=== PATIENT | male | born 1960 | race African-American/Black ===

== ENCOUNTER 2017-05-23 22:55 | Inpatient (IN) | payer SELFPAY ==
[~2017-05-23] VITALS: Ht 165.1 cm; Wt 57.8 kg
[2017-05-23] MEDS: MANNITOL 20% 250 ML IV ONE (00:45)
[~2017-05-23 22:55] MED LIST: NORMAL SALINE 0.9% 10 ML SYR ONE; SUCCINYLCHOLINE CHLORIDE 200MG/10ML VIAL IV ONE
[2017-05-23] MEDS ORDERED: ONDANSETRON HCL 4MG/2ML VIAL IV STA (22:58)
[2017-05-23] MEDS ORDERED: SODIUM CHLORIDE 0.9% 1,000 ML IV ONE (22:58)
[2017-05-23] MEDS ORDERED: LEVETIRACETAM 500MG PREMIX 100 ML IV ONE (23:00)
[2017-05-23] MEDS ORDERED: MIDAZOLAM HCL 2 MG/2 ML VIAL ONE (23:21)
[2017-05-23] MEDS ORDERED: DEXAMETHASONE 10 MG/ML VIAL IV ONE (23:30)
[2017-05-23] MEDS ORDERED: SUCCINYLCHOLINE CHLORIDE 200MG/10ML VIAL IV ONE (23:30)
[2017-05-23] MEDS ORDERED: NICARDIPINE 100 MG in SODIUM CHLORIDE 0.9% 60 ML IV ONE (23:30)
[2017-05-23] MEDS ORDERED: PROPOFOL 10MG/ML 100ML 100 ML IV ONE (23:30)
[2017-05-24] VITALS (74 sets, daily range): BP systolic 104–153; BP diastolic 60–103
[2017-05-24] MEDS ORDERED: MIDAZOLAM HCL 2 MG/2 ML VIAL IV ONE
[2017-05-24 00:04] LABS: BASOPHILS % 0.7 % (0.0-2.0); EOSINOPHILS % 2.5 % (0.0-5.0); HEMATOCRIT. 45.1 % (42.0-52.0); HEMOGLOBIN. 15.8 g/dL (14.0-18.0); LYMPHOCYTES % 25.4 % (20.0-50.0); MEAN CORPUSCULAR HEMOGLOBIN 31.8 pg (28.0-32.0); MEAN CORPUSCULAR VOLUME 90.7 fL (80.0-94.0); MEAN PLATELET VOLUME 8.3 fl (7.4-10.4); MONOCYTES % 3.8 % (2.0-8.0); NEUTROPHILS % 67.6 % (40.0-76.0); PLATELET 236 x1000/uL (130-400); RED BLOOD CELL COUNT 4.98 mill/uL (4.7-6.1); RED CELL DISTRIBUTION WIDTH 13.2 % (11.6-14.6)
[2017-05-24 00:08] LABS: PROTHROMBIN TIME 10.6 sec (9.4-11.6)
[2017-05-24 00:12] LABS: CHLORIDE 105 mEq/L (98-107)
[2017-05-24] MEDS ORDERED: MANNITOL 12.5G (25%) VIAL 50ML IV ONE (00:15)
[2017-05-24] MEDS ORDERED: NICARDIPINE 100 MG in SODIUM CHLORIDE 0.9% 60 ML IV PRN (00:15)
[2017-05-24 00:16] LABS: ETHANOL BLOOD < 10 mg/dL
[2017-05-24 00:18] LABS: AMMONIA 32 uMol/L (<32)
[2017-05-24 00:41] LABS: BG BASE EXCESS -0.9 mmol/L (-2.0-2.0); BG CARBOXYHEMOGLOBIN 2.1 % (0.5-1.5); BG DEOXYHEMOGLOBIN 3.9 % (0.0-5.0); BG FRACTION INSPIRED OXYGEN 50; BG HCO3 ACT 24.2 mmol/L (22.0-26.0); BG METHEMOGLOBIN 0.3 % (0.0-1.5); BG OXYHEMOGLOBIN 93.7 % (94.0-97.0); BG PCO2 41.9 mmHg (35.0-45.0); BG PO2 80.4 mmHg (75.0-100.0); BG SAMPLE SITE RIGHT BRACHIAL; BG TIDAL VOLUME(mL) 500 mL; BG TOTAL HEMOGLOBIN 15.3 g/dL (12.0-18.0); BG VENT MODE VENT - A/C; BG VENT RATE 16 set
[2017-05-24 01:15] LABS: CLARITY URINE CLEAR (CLEAR); COLOR URINE YELLOW (YELLOW); KETONES URINE NEGATIVE (NEGATIVE); LEUKOCYTE ESTERASE URINE NEGATIVE (NEGATIVE); NITRITE URINE NEGATIVE (NEGATIVE); OCCULT BLOOD URINE 1+ (NEGATIVE); PH URINE 7.5 (4.5-8.0); PROTEIN URINE 3+ (NEGATIVE); SPECIFIC GRAVITY URINE 1.011 (1.005-1.030); UROBILINOGEN URINE 0.2 E.U./dL (0.2-1.0)
[2017-05-24 01:34] LABS: *BARBITURATES SCREEN URINE NEGATIVE (NEGATIVE); *BENZODIAZEPINES SCREEN URINE PRESUMTIVE POSITIVE (NEGATIVE); *COCAINE SCREEN URINE NEGATIVE (NEGATIVE); METHADONE URINE SCREEN NEGATIVE (NEGATIVE); OPIATES URINE SCREEN NEGATIVE (NEGATIVE); PHENCYCLIDINE URINE SCREEN NEGATIVE (NEGATIVE)
[2017-05-24 01:35] LABS: *AMPHETAMINES SCREEN URINE NEGATIVE (NEGATIVE); CANNABINOID URINE SCREEN NEGATIVE (NEGATIVE)
[2017-05-24] MEDS ORDERED: KCL 20MEQ/100ML PREMIX 100 ML IV ONE (01:45)
[2017-05-24] MEDS ORDERED: PROPOFOL 10MG/ML 100ML 100 ML IV PRN ×3 (03:30→12:00)
[2017-05-24] MEDS ORDERED: MANNITOL 20% 100 ML IV SCH (04:00)
[2017-05-24] MEDS ORDERED: MANNITOL 20% 250 ML IV SCH (04:00)
[2017-05-24] MEDS ORDERED: MANNITOL 20% (20GM/100ML) BAG 500ML PREMIX IV SCH (05:00)
[2017-05-24] MEDS: MANNITOL 20% 100 ML IV SCH ×4 (05:03→16:52)
[2017-05-24] MEDS: DEXT 5%/LACTATED RINGERS 1,000 ML IV SCH (05:27)
[2017-05-24] MEDS: DEXAMETHASONE 10 MG/ML VIAL IV SCH ×4 (06:00→23:47)
[2017-05-24] MEDS: PHENYTOIN SODIUM 100MG/2ML VIAL IV SCH ×3 (06:14→21:26)
[2017-05-24] MEDS ORDERED: MORPHINE SULFATE 4 MG/ML CPJ (NOT FOR IM USE) IV PRN (07:00)
[2017-05-24] MEDS ORDERED: MORPHINE SULFATE 4 MG/ML CPJ (NOT FOR IM USE) IV NR (07:00)
[2017-05-24] MEDS: NICARDIPINE 100 MG in SODIUM CHLORIDE 0.9% 60 ML IV PRN (07:38)
[2017-05-24 07:56] LABS: BG BASE EXCESS -3.2 mmol/L (-2.0-2.0); BG CARBOXYHEMOGLOBIN 0.5 % (0.5-1.5); BG DEOXYHEMOGLOBIN 1.1 % (0.0-5.0); BG FRACTION INSPIRED OXYGEN 50; BG HCO3 ACT 20.6 mmol/L (22.0-26.0); BG METHEMOGLOBIN 0.2 % (0.0-1.5); BG OXYGEN SATURATION 98.9 % (92.0-98.5); BG OXYHEMOGLOBIN 98.2 % (94.0-97.0); BG PCO2 33.6 mmHg (35.0-45.0); BG PH 7.405 (7.350-7.450); BG PO2 156.6 mmHg (75.0-100.0); BG SAMPLE SITE RIGHT RADIAL; BG TIDAL VOLUME(mL) 500 mL; BG TOTAL HEMOGLOBIN 14.5 g/dL (12.0-18.0); BG VENT MODE VENT - A/C; BG VENT RATE 16 set
[2017-05-24] MEDS: MORPHINE SULFATE 4 MG/ML CPJ (NOT FOR IM USE) IV PRN ×2 (08:00→21:26)
[2017-05-24 08:28] LABS: HEMATOCRIT. 39.3 % (42.0-52.0); HEMOGLOBIN. 13.9 g/dL (14.0-18.0); MEAN CORPUSCULAR HEMOGLOBIN 31.9 pg (28.0-32.0); MEAN CORPUSCULAR VOLUME 90.4 fL (80.0-94.0); MEAN PLATELET VOLUME 8.1 fl (7.4-10.4); PLATELET 214 x1000/uL (130-400); RED BLOOD CELL COUNT 4.35 mill/uL (4.7-6.1)
[2017-05-24 08:49] LABS: PLATELET ESTIMATE NORMAL
[2017-05-24] MEDS ORDERED: DEXTROSE 50% WATER 50ML SYRINGE IV PRN (09:45)
[2017-05-24] MEDS ORDERED: PANTOPRAZOLE SODIUM 40 MG/VIAL IV ONE (09:50)
[2017-05-24] MEDS ORDERED: IPRATROPIUM/ALBUTEROL 0.5-3(2.5)MG/3ML NEB HHN PRN (10:30)
[2017-05-24] MEDS: BLOOD SUGAR DIAGNOSTIC STRIP TEST SCH ×3 (11:38→23:39)
[2017-05-24] MEDS: IPRATROPIUM/ALBUTEROL 0.5-3(2.5)MG/3ML NEB HHN SCH ×3 (11:40→20:49)
[2017-05-24] MEDS ORDERED: POTASSIUM CHLORIDE INJ 40 MEQ in SODIUM CHLORIDE 0.9% 250 ML IV NR (13:00)
[2017-05-24] MEDS ORDERED: POTASSIUM CHLORIDE INJ 40 MEQ in DEXT 5% WATER 250 ML IV NR (13:00)
[2017-05-24] MEDS: POTASSIUM CHLORIDE INJ 20 MEQ in SODIUM CHLORIDE 0.9% 100 ML IV SCH ×2 (14:00→16:00)
[2017-05-25] VITALS (79 sets, daily range): BP systolic 105–216; BP diastolic 46–139
[2017-05-25] MEDS: IPRATROPIUM/ALBUTEROL 0.5-3(2.5)MG/3ML NEB HHN SCH ×5 (00:16→20:48)
[2017-05-25] MEDS: MORPHINE SULFATE 4 MG/ML CPJ (NOT FOR IM USE) IV PRN ×5 (00:27→22:03)
[2017-05-25] MEDS: PHENYTOIN SODIUM 100MG/2ML VIAL IV SCH ×3 (05:18→22:02)
[2017-05-25] MEDS: BLOOD SUGAR DIAGNOSTIC STRIP TEST SCH ×3 (05:18→18:55)
[2017-05-25] MEDS: DEXAMETHASONE 10 MG/ML VIAL IV SCH ×3 (05:18→19:13)
[2017-05-25 05:31] LABS: HEMATOCRIT. 41.7 % (42.0-52.0); HEMOGLOBIN. 14.6 g/dL (14.0-18.0); MEAN CORPUSCULAR HEMOGLOBIN 31.7 pg (28.0-32.0); MEAN CORPUSCULAR VOLUME 90.7 fL (80.0-94.0); MEAN PLATELET VOLUME 8.9 fl (7.4-10.4); PLATELET 240 x1000/uL (130-400); RED CELL DISTRIBUTION WIDTH 13.7 % (11.6-14.6)
[2017-05-25 06:17] LABS: PHOSPHORUS 2.9 mg/dL (2.5-4.9)
[2017-05-25 07:23] LABS: BG BASE EXCESS -2.4 mmol/L (-2.0-2.0); BG CARBOXYHEMOGLOBIN 0.3 % (0.5-1.5); BG DEOXYHEMOGLOBIN 1.2 % (0.0-5.0); BG HCO3 ACT 21.6 mmol/L (22.0-26.0); BG METHEMOGLOBIN 0.2 % (0.0-1.5); BG OXYGEN SATURATION 98.8 % (92.0-98.5); BG OXYHEMOGLOBIN 98.3 % (94.0-97.0); BG PCO2 35.3 mmHg (35.0-45.0); BG PH 7.405 (7.350-7.450); BG PO2 149.2 mmHg (75.0-100.0); BG SAMPLE SITE RIGHT RADIAL; BG TIDAL VOLUME(mL) 500 mL; BG TOTAL HEMOGLOBIN 14.2 g/dL (12.0-18.0); BG VENT MODE VENT - A/C; BG VENT RATE 16 set
[2017-05-25] MEDS ORDERED: KCL 20MEQ/100ML PREMIX 100 ML IV SCH (08:30)
[2017-05-25] MEDS ORDERED: NON FORMULARY PATIENT HOME MED EA XX SCH (09:45)
[2017-05-25] MEDS: PANTOPRAZOLE SODIUM 40 MG/VIAL IV SCH (10:08)
[2017-05-25] MEDS: INSULIN GLARGINE UD 100 UNITS/ML SYR SUBCUT SCH (10:16)
[2017-05-25] MEDS ORDERED: POTASSIUM CHLORIDE INJ 20 MEQ in SODIUM CHLORIDE 0.9% 100 ML IV SCH (11:00)
[2017-05-25] MEDS: DEXT 5%/LACTATED RINGERS 1,000 ML IV SCH (13:00)
[2017-05-25] MEDS: NICARDIPINE 100 MG in SODIUM CHLORIDE 0.9% 60 ML IV PRN (16:48)
[2017-05-25 22:35] LABS: PLATELET ESTIMATE NORMAL
[2017-05-26] VITALS (49 sets, daily range): BP systolic 14–185; BP diastolic 67–124
[2017-05-26] MEDS: IPRATROPIUM/ALBUTEROL 0.5-3(2.5)MG/3ML NEB HHN SCH ×6 (00:27→23:51)
[2017-05-26] MEDS: BLOOD SUGAR DIAGNOSTIC STRIP TEST SCH ×5 (00:33→23:12)
[2017-05-26] MEDS: MORPHINE SULFATE 4 MG/ML CPJ (NOT FOR IM USE) IV PRN ×6 (00:35→15:10)
[2017-05-26] MEDS: DEXAMETHASONE 10 MG/ML VIAL IV SCH ×2 (00:35→05:45)
[2017-05-26 05:39] LABS: HEMATOCRIT. 42.8 % (42.0-52.0); HEMOGLOBIN. 14.6 g/dL (14.0-18.0); MEAN CORPUSCULAR HEMOGLOBIN 31.8 pg (28.0-32.0); MEAN PLATELET VOLUME 8.7 fl (7.4-10.4); PLATELET 254 x1000/uL (130-400); RED CELL DISTRIBUTION WIDTH 13.9 % (11.6-14.6)
[2017-05-26] MEDS: PHENYTOIN SODIUM 100MG/2ML VIAL IV SCH ×3 (05:44→21:27)
[2017-05-26 06:01] LABS: PHOSPHORUS 2.5 mg/dL (2.5-4.9)
[2017-05-26] MEDS: DEXT 5%/LACTATED RINGERS 1,000 ML IV SCH (08:00)
[2017-05-26] MEDS: PANTOPRAZOLE SODIUM 40 MG/VIAL IV SCH (08:10)
[2017-05-26 08:46] LABS: BG BASE EXCESS -1.6 mmol/L (-2.0-2.0); BG CARBOXYHEMOGLOBIN 0.1 % (0.5-1.5); BG DEOXYHEMOGLOBIN 1.9 % (0.0-5.0); BG FRACTION INSPIRED OXYGEN 50; BG HCO3 ACT 23.1 mmol/L (22.0-26.0); BG METHEMOGLOBIN 0.1 % (0.0-1.5); BG OXYGEN SATURATION 98.1 % (92.0-98.5); BG OXYHEMOGLOBIN 97.9 % (94.0-97.0); BG PCO2 39.1 mmHg (35.0-45.0); BG SAMPLE SITE LEFT RADIAL; BG TIDAL VOLUME(mL) 500 mL; BG TOTAL HEMOGLOBIN 14.3 g/dL (12.0-18.0); BG VENT MODE VENT - A/C; BG VENT RATE 16 set
[2017-05-26 12:23] LABS: PLATELET ESTIMATE NORMAL
[2017-05-26] MEDS: DEXAMETHASONE 4MG/ML 1ML VIAL IV SCH ×3 (12:29→23:12)
[2017-05-26] MEDS: INSULIN GLARGINE UD 100 UNITS/ML SYR SUBCUT SCH (12:30)
[2017-05-26] MEDS ORDERED: PHENYTOIN SODIUM 500 MG in SODIUM CHLORIDE 0.9% 50 ML IV NR (13:00)
[2017-05-26] MEDS ORDERED: LORAZEPAM 2MG/ML CPJ IV NR (13:45)
[2017-05-26] MEDS ORDERED: LORAZEPAM 2MG/ML CPJ ONE (13:55)
[2017-05-26] MEDS ORDERED: LIDOCAINE HCL 2% JELLY 5ML MM NR (14:15)
[2017-05-26] MEDS ORDERED: DEXTROSE 50% WATER 50ML SYRINGE IV PRN (14:15)
[2017-05-26] MEDS: PIPERACILLIN/TAZ 3.375G PREMIX 50 ML IV SCH ×2 (16:28→22:42)
[2017-05-26] MEDS: AMLODIPINE 5MG TABLET NG SCH ×2 (17:26→21:27)
[2017-05-26] MEDS: INSULIN LISPRO 100 UNITS/ML SUBCUT SCH ×2 (18:00→23:12)
[2017-05-26 18:55] LABS: BG CARBOXYHEMOGLOBIN 0.5 % (0.5-1.5); BG DEOXYHEMOGLOBIN 2.7 % (0.0-5.0); BG FRACTION INSPIRED OXYGEN 50; BG HCO3 ACT 24.6 mmol/L (22.0-26.0); BG METHEMOGLOBIN 0.4 % (0.0-1.5); BG OXYGEN SATURATION 97.3 % (92.0-98.5); BG OXYHEMOGLOBIN 96.4 % (94.0-97.0); BG PCO2 40.2 mmHg (35.0-45.0); BG PH 7.405 (7.350-7.450); BG PO2 98.5 mmHg (75.0-100.0); BG PRESSURE SUPPORT 15; BG SAMPLE SITE LEFT RADIAL; BG TIDAL VOLUME(mL) 500 mL; BG TOTAL HEMOGLOBIN 14.3 g/dL (12.0-18.0); BG VENT MODE VENT - SIMV; BG VENT RATE 12 set
[2017-05-26] MEDS: LORAZEPAM 2MG/ML CPJ IV PRN (20:22)
[2017-05-26] MEDS: DIPHENHYDRAMINE 12.5MG/5ML UDC NG PRN (21:46)
[2017-05-27] VITALS (94 sets, daily range): BP systolic 109–187; BP diastolic 60–127
[2017-05-27] MEDS: LORAZEPAM 2MG/ML CPJ IV PRN ×3 (03:41→20:20)
[2017-05-27] MEDS: IPRATROPIUM/ALBUTEROL 0.5-3(2.5)MG/3ML NEB HHN SCH ×5 (04:56→20:29)
[2017-05-27] MEDS: BLOOD SUGAR DIAGNOSTIC STRIP TEST SCH ×3 (05:16→16:59)
[2017-05-27] MEDS: DEXAMETHASONE 4MG/ML 1ML VIAL IV SCH ×3 (05:20→17:00)
[2017-05-27] MEDS: PHENYTOIN SODIUM 100MG/2ML VIAL IV SCH ×3 (05:20→22:09)
[2017-05-27] MEDS: INSULIN LISPRO 100 UNITS/ML SUBCUT SCH ×3 (05:21→17:00)
[2017-05-27 05:24] LABS: HEMATOCRIT. 40.7 % (42.0-52.0); HEMOGLOBIN. 14.2 g/dL (14.0-18.0); MEAN PLATELET VOLUME 9.2 fl (7.4-10.4); PLATELET 195 x1000/uL (130-400); RED BLOOD CELL COUNT 4.42 mill/uL (4.7-6.1); RED CELL DISTRIBUTION WIDTH 13.5 % (11.6-14.6)
[2017-05-27 05:55] LABS: PHOSPHORUS 2.3 mg/dL (2.5-4.9)
[2017-05-27] MEDS: PIPERACILLIN/TAZ 3.375G PREMIX 50 ML IV SCH ×3 (06:21→22:09)
[2017-05-27] MEDS: NICARDIPINE 100 MG in SODIUM CHLORIDE 0.9% 60 ML IV PRN (06:21)
[2017-05-27] MEDS: DIPHENHYDRAMINE 12.5MG/5ML UDC NG PRN ×2 (08:22→16:19)
[2017-05-27] MEDS: AMLODIPINE 5MG TABLET NG SCH ×2 (08:22→22:09)
[2017-05-27] MEDS: PANTOPRAZOLE SODIUM 40 MG/VIAL IV SCH (08:22)
[2017-05-27 08:23] LABS: BG BASE EXCESS 0.3 mmol/L (-2.0-2.0); BG CARBOXYHEMOGLOBIN 0.7 % (0.5-1.5); BG DEOXYHEMOGLOBIN 1.6 % (0.0-5.0); BG FRACTION INSPIRED OXYGEN 50; BG HCO3 ACT 23.9 mmol/L (22.0-26.0); BG METHEMOGLOBIN 0.3 % (0.0-1.5); BG OXYGEN SATURATION 98.4 % (92.0-98.5); BG OXYHEMOGLOBIN 97.4 % (94.0-97.0); BG PCO2 35.6 mmHg (35.0-45.0); BG PH 7.445 (7.350-7.450); BG PO2 114.5 mmHg (75.0-100.0); BG PRESSURE SUPPORT 15; BG SAMPLE SITE LEFT RADIAL; BG TIDAL VOLUME(mL) 500 mL; BG VENT MODE VENT - SIMV; BG VENT RATE 12 set
[2017-05-27] MEDS: INSULIN GLARGINE UD 100 UNITS/ML SYR SUBCUT SCH (11:00)
[2017-05-27] MEDS ORDERED: VANCOMYCIN 1500MG in DEXTROSE 5% WATER 250ML IV NR (11:00)
[2017-05-27 14:33] LABS: PLATELET ESTIMATE NORMAL
[2017-05-27] MEDS: ACETAMINOPHEN 650MG/20.3ML UDC NG PRN (16:19)
[2017-05-27] MEDS: HYDRALAZINE 20MG/ML VIAL IV PRN (16:29)
[2017-05-27 17:12] LABS: BG BASE EXCESS 1.5 mmol/L (-2.0-2.0); BG CARBOXYHEMOGLOBIN 0.6 % (0.5-1.5); BG DEOXYHEMOGLOBIN 1.4 % (0.0-5.0); BG FRACTION INSPIRED OXYGEN 50; BG HCO3 ACT 24.9 mmol/L (22.0-26.0); BG METHEMOGLOBIN 0.3 % (0.0-1.5); BG OXYGEN SATURATION 98.6 % (92.0-98.5); BG OXYHEMOGLOBIN 97.7 % (94.0-97.0); BG PCO2 35.7 mmHg (35.0-45.0); BG PH 7.462 (7.350-7.450); BG PO2 125.5 mmHg (75.0-100.0); BG PRESSURE SUPPORT 15; BG SAMPLE SITE LEFT BRACHIAL; BG TIDAL VOLUME(mL) 500 mL; BG TOTAL HEMOGLOBIN 14.8 g/dL (12.0-18.0); BG VENT MODE VENT - SIMV; BG VENT RATE 8 set
[2017-05-27] MEDS: MORPHINE SULFATE 4 MG/ML CPJ (NOT FOR IM USE) IV PRN (17:21)
[2017-05-27] MEDS: VANCOMYCIN 750 MG PREMIX 150 ML IV SCH (22:09)
[2017-05-28] VITALS (93 sets, daily range): BP systolic 114–185; BP diastolic 62–100
[2017-05-28] MEDS: BLOOD SUGAR DIAGNOSTIC STRIP TEST SCH ×4 (00:28→17:24)
[2017-05-28] MEDS: DEXAMETHASONE 4MG/ML 1ML VIAL IV SCH ×4 (00:36→17:26)
[2017-05-28] MEDS: DIPHENHYDRAMINE 12.5MG/5ML UDC NG PRN ×3 (00:36→17:26)
[2017-05-28] MEDS: LORAZEPAM 2MG/ML CPJ IV PRN ×3 (00:36→22:59)
[2017-05-28] MEDS: INSULIN LISPRO 100 UNITS/ML SUBCUT SCH ×4 (00:37→17:40)
[2017-05-28] MEDS: NICARDIPINE 100 MG in SODIUM CHLORIDE 0.9% 60 ML IV PRN ×3 (00:38→21:00)
[2017-05-28] MEDS: IPRATROPIUM/ALBUTEROL 0.5-3(2.5)MG/3ML NEB HHN SCH ×7 (04:15→23:42)
[2017-05-28] MEDS: PHENYTOIN SODIUM 100MG/2ML VIAL IV SCH ×3 (06:28→21:17)
[2017-05-28] MEDS: PIPERACILLIN/TAZ 3.375G PREMIX 50 ML IV SCH (06:33)
[2017-05-28] MEDS: DEXT 5%/LACTATED RINGERS 1,000 ML IV SCH (07:43)
[2017-05-28] MEDS: ACETAMINOPHEN 650MG/20.3ML UDC NG PRN ×3 (08:23→23:26)
[2017-05-28] MEDS: PANTOPRAZOLE SODIUM 40 MG/VIAL IV SCH (08:23)
[2017-05-28] MEDS: AMLODIPINE 5MG TABLET NG SCH ×2 (08:24→21:17)
[2017-05-28 08:42] LABS: BG BASE EXCESS 2.6 mmol/L (-2.0-2.0); BG CARBOXYHEMOGLOBIN 0.3 % (0.5-1.5); BG DEOXYHEMOGLOBIN 3.9 % (0.0-5.0); BG FRACTION INSPIRED OXYGEN 50; BG HCO3 ACT 25.2 mmol/L (22.0-26.0); BG METHEMOGLOBIN 0.1 % (0.0-1.5); BG OXYGEN SATURATION 96.1 % (92.0-98.5); BG OXYHEMOGLOBIN 95.7 % (94.0-97.0); BG PCO2 33.1 mmHg (35.0-45.0); BG PO2 76.1 mmHg (75.0-100.0); BG PRESSURE SUPPORT 15; BG SAMPLE SITE LEFT RADIAL; BG TIDAL VOLUME(mL) 500 mL; BG VENT MODE VENT - SIMV; BG VENT RATE 8 set
[2017-05-28] MEDS: INSULIN GLARGINE UD 100 UNITS/ML SYR SUBCUT SCH (10:28)
[2017-05-28] MEDS: VANCOMYCIN 750 MG PREMIX 150 ML IV SCH (11:39)
[2017-05-28] MEDS: MORPHINE SULFATE 4 MG/ML CPJ (NOT FOR IM USE) IV PRN (13:18)
[2017-05-28 13:28] LABS: HEMOGLOBIN. 13.6 g/dL (14.0-18.0); MEAN CORPUSCULAR VOLUME 93.9 fL (80.0-94.0); MEAN PLATELET VOLUME 9.4 fl (7.4-10.4); PLATELET 195 x1000/uL (130-400); RED BLOOD CELL COUNT 4.26 mill/uL (4.7-6.1); RED CELL DISTRIBUTION WIDTH 13.9 % (11.6-14.6)
[2017-05-28] MEDS: CEFAZOLIN 1000MG PREMIX 50 ML IV SCH ×2 (14:42→21:17)
[2017-05-29] VITALS (103 sets, daily range): BP systolic 116–172; BP diastolic 66–101
[2017-05-29 00:10] LABS: PLATELET ESTIMATE NORMAL
[2017-05-29] MEDS: MORPHINE SULFATE 4 MG/ML CPJ (NOT FOR IM USE) IV PRN (00:14)
[2017-05-29] MEDS: BLOOD SUGAR DIAGNOSTIC STRIP TEST SCH ×5 (00:38→23:43)
[2017-05-29] MEDS: INSULIN LISPRO 100 UNITS/ML SUBCUT SCH ×5 (00:41→23:47)
[2017-05-29] MEDS: DEXAMETHASONE 4MG/ML 1ML VIAL IV SCH ×5 (00:55→23:37)
[2017-05-29] MEDS: HALOPERIDOL LACTATE 5MG/ML VIAL IM PRN ×3 (02:51→19:03)
[2017-05-29] MEDS: IPRATROPIUM/ALBUTEROL 0.5-3(2.5)MG/3ML NEB HHN SCH ×5 (03:35→20:03)
[2017-05-29] MEDS: PHENYTOIN SODIUM 100MG/2ML VIAL IV SCH ×3 (05:03→22:57)
[2017-05-29] MEDS: CEFAZOLIN 1000MG PREMIX 50 ML IV SCH ×3 (05:06→21:35)
[2017-05-29] MEDS: NICARDIPINE 100 MG in SODIUM CHLORIDE 0.9% 60 ML IV PRN ×3 (05:07→18:24)
[2017-05-29 08:03] LABS: BG BASE EXCESS 3.1 mmol/L (-2.0-2.0); BG CARBOXYHEMOGLOBIN 0.1 % (0.5-1.5); BG DEOXYHEMOGLOBIN 9.6 % (0.0-5.0); BG HCO3 ACT 27.9 mmol/L (22.0-26.0); BG METHEMOGLOBIN 0.3 % (0.0-1.5); BG OXYGEN SATURATION 90.4 % (92.0-98.5); BG PCO2 43.1 mmHg (35.0-45.0); BG PH 7.429 (7.350-7.450); BG PO2 55.6 mmHg (75.0-100.0); BG SAMPLE SITE RIGHT RADIAL; BG TIDAL VOLUME(mL) 500 mL; BG TOTAL HEMOGLOBIN 14.1 g/dL (12.0-18.0); BG VENT MODE VENT - SIMV; BG VENT RATE 8 set
[2017-05-29] MEDS: PANTOPRAZOLE SODIUM 40 MG/VIAL IV SCH (08:45)
[2017-05-29] MEDS: AMLODIPINE 5MG TABLET NG SCH ×2 (08:45→20:36)
[2017-05-29] MEDS: INSULIN GLARGINE UD 100 UNITS/ML SYR SUBCUT SCH (10:16)
[2017-05-29 10:34] LABS: HEMOGLOBIN. 13.9 g/dL (14.0-18.0); MEAN CORPUSCULAR HEMOGLOBIN 31.9 pg (28.0-32.0); MEAN CORPUSCULAR VOLUME 94.2 fL (80.0-94.0); MEAN PLATELET VOLUME 9.5 fl (7.4-10.4); PLATELET 193 x1000/uL (130-400); RED BLOOD CELL COUNT 4.35 mill/uL (4.7-6.1); RED CELL DISTRIBUTION WIDTH 13.8 % (11.6-14.6)
[2017-05-29 12:13] LABS: PLATELET ESTIMATE NORMAL
[2017-05-29] MEDS: DIPHENHYDRAMINE 12.5MG/5ML UDC NG PRN (13:19)
[2017-05-29] MEDS: LORAZEPAM 2MG/ML CPJ IV PRN ×2 (16:05→23:37)
[2017-05-29] MEDS: ACETAMINOPHEN 650MG/20.3ML UDC NG PRN ×2 (18:39→20:36)
[2017-05-29] MEDS: HYDRALAZINE 20MG/ML VIAL IV PRN (22:57)
[2017-05-30] VITALS (102 sets, daily range): BP systolic 107–180; BP diastolic 60–114
[2017-05-30] MEDS: IPRATROPIUM/ALBUTEROL 0.5-3(2.5)MG/3ML NEB HHN SCH ×6 (00:27→20:46)
[2017-05-30] MEDS: NICARDIPINE 100 MG in SODIUM CHLORIDE 0.9% 60 ML IV PRN ×3 (01:28→16:31)
[2017-05-30] MEDS: CEFAZOLIN 1000MG PREMIX 50 ML IV SCH ×3 (05:06→22:19)
[2017-05-30] MEDS: DEXAMETHASONE 4MG/ML 1ML VIAL IV SCH ×3 (05:41→18:04)
[2017-05-30] MEDS: LORAZEPAM 2MG/ML CPJ IV PRN ×3 (05:41→16:31)
[2017-05-30] MEDS: PHENYTOIN SODIUM 100MG/2ML VIAL IV SCH ×3 (05:42→22:17)
[2017-05-30] MEDS: BLOOD SUGAR DIAGNOSTIC STRIP TEST SCH ×3 (06:09→17:05)
[2017-05-30 06:25] LABS: HEMATOCRIT. 43.2 % (42.0-52.0); HEMOGLOBIN. 14.4 g/dL (14.0-18.0); MEAN CORPUSCULAR HEMOGLOBIN 31.4 pg (28.0-32.0); MEAN CORPUSCULAR VOLUME 94.6 fL (80.0-94.0); RED BLOOD CELL COUNT 4.57 mill/uL (4.7-6.1); RED CELL DISTRIBUTION WIDTH 13.9 % (11.6-14.6)
[2017-05-30] MEDS: INSULIN LISPRO 100 UNITS/ML SUBCUT SCH ×3 (06:27→18:05)
[2017-05-30] MEDS: AMLODIPINE 5MG TABLET NG SCH ×2 (08:27→20:22)
[2017-05-30] MEDS: PANTOPRAZOLE SODIUM 40 MG/VIAL IV SCH (08:27)
[2017-05-30 08:47] LABS: BG BASE EXCESS 3.6 mmol/L (-2.0-2.0); BG CARBOXYHEMOGLOBIN 0.9 % (0.5-1.5); BG DEOXYHEMOGLOBIN 2.6 % (0.0-5.0); BG FRACTION INSPIRED OXYGEN 40; BG HCO3 ACT 27.3 mmol/L (22.0-26.0); BG METHEMOGLOBIN 0.3 % (0.0-1.5); BG OXYGEN SATURATION 97.4 % (92.0-98.5); BG OXYHEMOGLOBIN 96.2 % (94.0-97.0); BG PCO2 38.7 mmHg (35.0-45.0); BG PH 7.467 (7.350-7.450); BG PO2 91.3 mmHg (75.0-100.0); BG PRESSURE SUPPORT 10; BG SAMPLE SITE LEFT RADIAL; BG VENT MODE VENT - CPAP
[2017-05-30] MEDS: INSULIN GLARGINE UD 100 UNITS/ML SYR SUBCUT SCH (09:37)
[2017-05-30] MEDS: HYDRALAZINE 20MG/ML VIAL IV PRN ×2 (09:43→18:03)
[2017-05-30] MEDS: HALOPERIDOL LACTATE 5MG/ML VIAL IM PRN ×2 (09:46→18:03)
[2017-05-30] MEDS: ACETAMINOPHEN 650MG/20.3ML UDC NG PRN (09:47)
[2017-05-30 11:49] LABS: PLATELET 167 x1000/uL (130-400)
[2017-05-30 11:53] LABS: NUCLEATED RED BLOOD CELLS 1 /100 WBC
[2017-05-30 11:54] LABS: PLATELET ESTIMATE NORMAL
[2017-05-30] MEDS: CLONIDINE 0.1MG TABLET NG SCH ×2 (12:05→22:17)
[2017-05-30 14:54] LABS: BG BASE EXCESS 3.8 mmol/L (-2.0-2.0); BG CARBOXYHEMOGLOBIN 0.6 % (0.5-1.5); BG DEOXYHEMOGLOBIN 2.2 % (0.0-5.0); BG FRACTION INSPIRED OXYGEN 40; BG HCO3 ACT 28.2 mmol/L (22.0-26.0); BG METHEMOGLOBIN 0.4 % (0.0-1.5); BG OXYGEN SATURATION 97.8 % (92.0-98.5); BG OXYHEMOGLOBIN 96.8 % (94.0-97.0); BG PCO2 41.7 mmHg (35.0-45.0); BG PH 7.448 (7.350-7.450); BG SAMPLE SITE LEFT RADIAL; BG TOTAL HEMOGLOBIN 16.4 g/dL (12.0-18.0); BG VENT MODE T-TUBE
[2017-05-31] VITALS (104 sets, daily range): BP systolic 117–181; BP diastolic 51–168
[2017-05-31] MEDS: BLOOD SUGAR DIAGNOSTIC STRIP TEST SCH ×4 (00:39→17:26)
[2017-05-31] MEDS: INSULIN LISPRO 100 UNITS/ML SUBCUT SCH ×4 (00:43→17:37)
[2017-05-31] MEDS: DEXAMETHASONE 4MG/ML 1ML VIAL IV SCH ×4 (00:43→17:36)
[2017-05-31] MEDS: IPRATROPIUM/ALBUTEROL 0.5-3(2.5)MG/3ML NEB HHN SCH ×5 (01:01→16:47)
[2017-05-31] MEDS: LORAZEPAM 2MG/ML CPJ IV PRN ×3 (03:10→17:36)
[2017-05-31] MEDS: DIPHENHYDRAMINE 12.5MG/5ML UDC NG PRN (04:06)
[2017-05-31] MEDS: HYDRALAZINE 20MG/ML VIAL IV PRN (04:11)
[2017-05-31] MEDS: NICARDIPINE 100 MG in SODIUM CHLORIDE 0.9% 60 ML IV PRN ×2 (05:29→22:04)
[2017-05-31] MEDS: PHENYTOIN SODIUM 100MG/2ML VIAL IV SCH ×3 (05:47→21:48)
[2017-05-31] MEDS: CLONIDINE 0.1MG TABLET NG SCH ×3 (05:48→21:58)
[2017-05-31] MEDS: CEFAZOLIN 1000MG PREMIX 50 ML IV SCH ×3 (05:53→21:55)
[2017-05-31] MEDS: PANTOPRAZOLE SODIUM 40 MG/VIAL IV SCH (08:09)
[2017-05-31] MEDS: ACETAMINOPHEN 650MG/20.3ML UDC NG PRN (08:10)
[2017-05-31] MEDS: HALOPERIDOL LACTATE 5MG/ML VIAL IM PRN (08:10)
[2017-05-31] MEDS: AMLODIPINE 5MG TABLET NG SCH ×2 (08:10→21:22)
[2017-05-31 09:14] LABS: BG BASE EXCESS 1.4 mmol/L (-2.0-2.0); BG CARBOXYHEMOGLOBIN 0.6 % (0.5-1.5); BG DEOXYHEMOGLOBIN 2.8 % (0.0-5.0); BG FRACTION INSPIRED OXYGEN 36; BG HCO3 ACT 24.3 mmol/L (22.0-26.0); BG METHEMOGLOBIN 0.3 % (0.0-1.5); BG OXYGEN SATURATION 97.2 % (92.0-98.5); BG OXYHEMOGLOBIN 96.3 % (94.0-97.0); BG PCO2 33.9 mmHg (35.0-45.0); BG PH 7.474 (7.350-7.450); BG SAMPLE SITE LEFT RADIAL; BG TOTAL HEMOGLOBIN 15.4 g/dL (12.0-18.0); BG VENT MODE NASAL CPAP
[2017-05-31] MEDS: INSULIN GLARGINE UD 100 UNITS/ML SYR SUBCUT SCH (09:16)
[2017-05-31] MEDS: HYDRALAZINE HCL 25MG TABLET PO SCH ×3 (09:55→21:58)
[2017-05-31] MEDS: METOPROLOL TARTRATE 25MG TABLET PO SCH ×2 (09:55→21:21)
[2017-05-31 11:33] LABS: HEMATOCRIT. 43.5 % (42.0-52.0); HEMOGLOBIN. 14.8 g/dL (14.0-18.0); MEAN CORPUSCULAR HEMOGLOBIN 32.3 pg (28.0-32.0); MEAN PLATELET VOLUME 9.4 fl (7.4-10.4); PLATELET 205 x1000/uL (130-400); RED BLOOD CELL COUNT 4.57 mill/uL (4.7-6.1)
[2017-05-31 13:48] LABS: PLATELET ESTIMATE NORMAL
[2017-06-01] VITALS (107 sets, daily range): BP systolic 113–177; BP diastolic 40–117
[2017-06-01] MEDS: IPRATROPIUM/ALBUTEROL 0.5-3(2.5)MG/3ML NEB HHN SCH ×5 (00:28→20:04)
[2017-06-01] MEDS: INSULIN LISPRO 100 UNITS/ML SUBCUT SCH ×4 (01:12→17:38)
[2017-06-01] MEDS: NICARDIPINE 100 MG in SODIUM CHLORIDE 0.9% 60 ML IV PRN ×2 (05:01→13:25)
[2017-06-01] MEDS: CEFAZOLIN 1000MG PREMIX 50 ML IV SCH ×3 (06:00→22:02)
[2017-06-01] MEDS: CLONIDINE 0.1MG TABLET NG SCH (06:01)
[2017-06-01] MEDS: HYDRALAZINE HCL 25MG TABLET PO SCH (06:02)
[2017-06-01] MEDS: PHENYTOIN SODIUM 100MG/2ML VIAL IV SCH (06:02)
[2017-06-01] MEDS: BLOOD SUGAR DIAGNOSTIC STRIP TEST SCH ×4 (06:02→17:38)
[2017-06-01] MEDS: DEXAMETHASONE 4MG/ML 1ML VIAL IV SCH ×4 (06:02→17:37)
[2017-06-01] MEDS: AMLODIPINE 5MG TABLET NG SCH ×2 (08:31→22:02)
[2017-06-01] MEDS: METOPROLOL TARTRATE 25MG TABLET PO SCH ×2 (08:31→22:01)
[2017-06-01] MEDS: PANTOPRAZOLE SODIUM 40 MG/VIAL IV SCH (08:32)
[2017-06-01] MEDS: INSULIN GLARGINE UD 100 UNITS/ML SYR SUBCUT SCH (10:36)
[2017-06-01 13:07] LABS: HEMATOCRIT. 49.8 % (42.0-52.0); HEMOGLOBIN. 16.7 g/dL (14.0-18.0); MEAN CORPUSCULAR HEMOGLOBIN 32.1 pg (28.0-32.0); MEAN CORPUSCULAR VOLUME 95.9 fL (80.0-94.0); MEAN PLATELET VOLUME 9.3 fl (7.4-10.4); PLATELET 218 x1000/uL (130-400); RED BLOOD CELL COUNT 5.19 mill/uL (4.7-6.1); RED CELL DISTRIBUTION WIDTH 13.5 % (11.6-14.6)
[2017-06-01] MEDS: ACETYLCYSTEINE 100MG/ML 10% VIAL 4ML INH SCH (13:21)
[2017-06-01] MEDS: CLONIDINE 0.2MG TABLET PO SCH ×2 (13:42→22:01)
[2017-06-01] MEDS: HYDRALAZINE HCL 50MG TABLET NG SCH ×2 (13:43→22:01)
[2017-06-01] MEDS: PHENYTOIN 100 MG/4 ML UDC NG SCH (15:51)
[2017-06-01] MEDS: DIPHENHYDRAMINE 12.5MG/5ML UDC NG PRN (18:23)
[2017-06-02] VITALS (88 sets, daily range): BP systolic 112–177; BP diastolic 71–127
[2017-06-02] MEDS: ACETYLCYSTEINE 100MG/ML 10% VIAL 4ML INH SCH ×3 (00:05→16:36)
[2017-06-02] MEDS: IPRATROPIUM/ALBUTEROL 0.5-3(2.5)MG/3ML NEB HHN SCH ×7 (00:05→20:39)
[2017-06-02] MEDS: PHENYTOIN 100 MG/4 ML UDC NG SCH ×3 (01:02→16:23)
[2017-06-02] MEDS: DEXAMETHASONE 4MG/ML 1ML VIAL IV SCH ×4 (01:06→17:50)
[2017-06-02] MEDS: INSULIN LISPRO 100 UNITS/ML SUBCUT SCH ×4 (01:07→17:47)
[2017-06-02] MEDS: DIPHENHYDRAMINE 12.5MG/5ML UDC NG PRN ×2 (01:22→10:09)
[2017-06-02] MEDS: CEFAZOLIN 1000MG PREMIX 50 ML IV SCH ×3 (05:28→22:27)
[2017-06-02] MEDS: CLONIDINE 0.2MG TABLET PO SCH ×3 (05:29→22:30)
[2017-06-02] MEDS: NICARDIPINE 100 MG in SODIUM CHLORIDE 0.9% 60 ML IV PRN (05:29)
[2017-06-02] MEDS: BLOOD SUGAR DIAGNOSTIC STRIP TEST SCH ×4 (05:30→17:46)
[2017-06-02] MEDS: HYDRALAZINE HCL 50MG TABLET NG SCH ×3 (05:30→17:52)
[2017-06-02] MEDS: METOPROLOL TARTRATE 25MG TABLET PO SCH ×2 (08:02→21:53)
[2017-06-02] MEDS: PANTOPRAZOLE SODIUM 40 MG/VIAL IV SCH (08:02)
[2017-06-02] MEDS: AMLODIPINE 5MG TABLET NG SCH ×2 (08:03→21:54)
[2017-06-02] MEDS: INSULIN GLARGINE UD 100 UNITS/ML SYR SUBCUT SCH (10:10)
[2017-06-02 13:05] LABS: HEMOGLOBIN. 15.7 g/dL (14.0-18.0); MEAN CORPUSCULAR VOLUME 95.6 fL (80.0-94.0); PLATELET 192 x1000/uL (130-400); RED BLOOD CELL COUNT 4.92 mill/uL (4.7-6.1); RED CELL DISTRIBUTION WIDTH 13.4 % (11.6-14.6)
[2017-06-02 13:27] LABS: PLATELET ESTIMATE NORMAL
[2017-06-02 13:37] LABS: PLATELET ESTIMATE NORMAL
[2017-06-02] MEDS ORDERED: LACTULOSE 20G/30ML UDC PO NR (14:30)
[2017-06-02] MEDS ORDERED: BISACODYL 10MG SUPP PR PRN (14:30)
[2017-06-02] MEDS: DOCUSATE SODIUM SUGAR FREE 100MG/10ML UDC NG SCH (16:00)
[2017-06-02] MEDS: LORAZEPAM 2MG/ML CPJ IV PRN ×2 (16:20→21:50)
[2017-06-03] VITALS (92 sets, daily range): BP systolic 102–176; BP diastolic 69–119
[2017-06-03] MEDS: HYDRALAZINE HCL 50MG TABLET NG SCH ×4 (00:29→17:10)
[2017-06-03] MEDS: PHENYTOIN 100 MG/4 ML UDC NG SCH ×3 (00:29→17:14)
[2017-06-03] MEDS: DEXAMETHASONE 4MG/ML 1ML VIAL IV SCH ×4 (00:31→17:10)
[2017-06-03] MEDS: IPRATROPIUM/ALBUTEROL 0.5-3(2.5)MG/3ML NEB HHN SCH ×7 (00:49→23:42)
[2017-06-03] MEDS: ACETYLCYSTEINE 100MG/ML 10% VIAL 4ML INH SCH ×4 (00:49→23:43)
[2017-06-03] MEDS: BLOOD SUGAR DIAGNOSTIC STRIP TEST SCH ×4 (00:59→17:41)
[2017-06-03] MEDS: LORAZEPAM 2MG/ML CPJ IV PRN (04:04)
[2017-06-03 05:28] LABS: HEMATOCRIT. 47.7 % (42.0-52.0); MEAN CORPUSCULAR HEMOGLOBIN 32.1 pg (28.0-32.0); MEAN CORPUSCULAR VOLUME 95.4 fL (80.0-94.0); MEAN PLATELET VOLUME 9.4 fl (7.4-10.4); PLATELET 191 x1000/uL (130-400); RED CELL DISTRIBUTION WIDTH 13.5 % (11.6-14.6)
[2017-06-03] MEDS: INSULIN LISPRO 100 UNITS/ML SUBCUT SCH ×4 (06:00→17:56)
[2017-06-03] MEDS: CLONIDINE 0.2MG TABLET PO SCH ×3 (06:45→21:39)
[2017-06-03 07:46] LABS: BG BASE EXCESS 1.8 mmol/L (-2.0-2.0); BG DEOXYHEMOGLOBIN 9.1 % (0.0-5.0); BG HCO3 ACT 25.2 mmol/L (22.0-26.0); BG METHEMOGLOBIN 0.4 % (0.0-1.5); BG OXYGEN SATURATION 90.8 % (92.0-98.5); BG OXYHEMOGLOBIN 89.5 % (94.0-97.0); BG PCO2 35.9 mmHg (35.0-45.0); BG PH 7.464 (7.350-7.450); BG SAMPLE SITE RIGHT BRACHIAL; BG TOTAL HEMOGLOBIN 16.3 g/dL (12.0-18.0); BG VENT MODE NASAL CANNULA
[2017-06-03 08:21] LABS: PHOSPHORUS 5.3 mg/dL (2.5-4.9)
[2017-06-03] MEDS: PANTOPRAZOLE SODIUM 40 MG/VIAL IV SCH (08:25)
[2017-06-03] MEDS: METOPROLOL TARTRATE 25MG TABLET PO SCH ×2 (08:26→21:05)
[2017-06-03] MEDS: DOCUSATE SODIUM SUGAR FREE 100MG/10ML UDC NG SCH (08:26)
[2017-06-03] MEDS: AMLODIPINE 5MG TABLET NG SCH ×2 (08:26→21:06)
[2017-06-03] MEDS: INSULIN GLARGINE UD 100 UNITS/ML SYR SUBCUT SCH (12:22)
[2017-06-03 12:30] LABS: PLATELET ESTIMATE NORMAL
[2017-06-03] MEDS: HYDRALAZINE 20MG/ML VIAL IV PRN (18:49)
[2017-06-03] MEDS: DIPHENHYDRAMINE 12.5MG/5ML UDC NG PRN (21:44)
[2017-06-04] VITALS (83 sets, daily range): BP systolic 112–173; BP diastolic 69–117
[2017-06-04] MEDS: HYDRALAZINE HCL 50MG TABLET NG SCH ×4 (00:21→17:51)
[2017-06-04] MEDS: DEXAMETHASONE 4MG/ML 1ML VIAL IV SCH ×4 (00:21→17:49)
[2017-06-04] MEDS: BLOOD SUGAR DIAGNOSTIC STRIP TEST SCH ×4 (00:24→17:51)
[2017-06-04] MEDS: INSULIN LISPRO 100 UNITS/ML SUBCUT SCH ×4 (00:29→17:51)
[2017-06-04] MEDS: PHENYTOIN 100 MG/4 ML UDC NG SCH ×3 (00:49→16:00)
[2017-06-04] MEDS: HYDRALAZINE 20MG/ML VIAL IV PRN (02:55)
[2017-06-04] MEDS: IPRATROPIUM/ALBUTEROL 0.5-3(2.5)MG/3ML NEB HHN SCH ×5 (03:14→21:22)
[2017-06-04] MEDS: RACEPINEPHRINE 2.25% 0.5ML NEB VIAL HHN PRN (04:47)
[2017-06-04 05:23] LABS: HEMATOCRIT. 45.5 % (42.0-52.0); HEMOGLOBIN. 15.1 g/dL (14.0-18.0); MEAN CORPUSCULAR HEMOGLOBIN 31.9 pg (28.0-32.0); MEAN CORPUSCULAR VOLUME 95.7 fL (80.0-94.0); MEAN PLATELET VOLUME 9.5 fl (7.4-10.4); PLATELET 182 x1000/uL (130-400); RED BLOOD CELL COUNT 4.75 mill/uL (4.7-6.1); RED CELL DISTRIBUTION WIDTH 13.2 % (11.6-14.6)
[2017-06-04 06:02] LABS: PHOSPHORUS 3.8 mg/dL (2.5-4.9)
[2017-06-04] MEDS: CLONIDINE 0.2MG TABLET PO SCH ×3 (06:34→21:15)
[2017-06-04] MEDS: LORAZEPAM 2MG/ML CPJ IV PRN (07:46)
[2017-06-04 08:24] LABS: BG BASE EXCESS 0.8 mmol/L (-2.0-2.0); BG CARBOXYHEMOGLOBIN 0.5 % (0.5-1.5); BG DEOXYHEMOGLOBIN 5.7 % (0.0-5.0); BG FRACTION INSPIRED OXYGEN 28; BG HCO3 ACT 24.1 mmol/L (22.0-26.0); BG METHEMOGLOBIN 0.1 % (0.0-1.5); BG OXYGEN SATURATION 94.3 % (92.0-98.5); BG OXYHEMOGLOBIN 93.7 % (94.0-97.0); BG PCO2 34.6 mmHg (35.0-45.0); BG PO2 74.8 mmHg (75.0-100.0); BG SAMPLE SITE LEFT RADIAL; BG VENT MODE MASK - AEROSOL
[2017-06-04] MEDS: BUDESONIDE 0.5MG/2ML NEB HHN SCH ×2 (08:45→21:21)
[2017-06-04] MEDS: ACETYLCYSTEINE 100MG/ML 10% VIAL 4ML INH SCH ×2 (08:45→16:52)
[2017-06-04] MEDS: AMLODIPINE 5MG TABLET NG SCH ×2 (09:26→21:14)
[2017-06-04] MEDS: PANTOPRAZOLE SODIUM 40 MG/VIAL IV SCH (09:26)
[2017-06-04] MEDS: METOPROLOL TARTRATE 25MG TABLET PO SCH ×2 (09:27→21:15)
[2017-06-04] MEDS: DOCUSATE SODIUM SUGAR FREE 100MG/10ML UDC NG SCH (09:27)
[2017-06-04] MEDS: INSULIN GLARGINE UD 100 UNITS/ML SYR SUBCUT SCH (09:29)
[2017-06-04 11:30] LABS: PLATELET ESTIMATE NORMAL
[2017-06-05] VITALS (16 sets, daily range): BP systolic 126–180; BP diastolic 78–114
[2017-06-05] MEDS: PHENYTOIN 100 MG/4 ML UDC NG SCH ×3 (00:03→15:53)
[2017-06-05] MEDS: DEXAMETHASONE 4MG/ML 1ML VIAL IV SCH ×4 (00:03→17:04)
[2017-06-05] MEDS: HYDRALAZINE HCL 50MG TABLET NG SCH ×5 (00:04→23:49)
[2017-06-05] MEDS: BLOOD SUGAR DIAGNOSTIC STRIP TEST SCH ×5 (00:06→23:28)
[2017-06-05] MEDS: INSULIN LISPRO 100 UNITS/ML SUBCUT SCH ×5 (00:18→23:50)
[2017-06-05] MEDS: IPRATROPIUM/ALBUTEROL 0.5-3(2.5)MG/3ML NEB HHN SCH ×6 (00:33→20:59)
[2017-06-05] MEDS: ACETYLCYSTEINE 100MG/ML 10% VIAL 4ML INH SCH ×3 (00:34→15:34)
[2017-06-05] MEDS: ACETAMINOPHEN 650MG/20.3ML UDC NG PRN (04:49)
[2017-06-05] MEDS: RACEPINEPHRINE 2.25% 0.5ML NEB VIAL HHN PRN (05:26)
[2017-06-05] MEDS: CLONIDINE 0.2MG TABLET PO SCH ×3 (05:48→22:00)
[2017-06-05] MEDS: BUDESONIDE 0.5MG/2ML NEB HHN SCH ×2 (07:56→20:59)
[2017-06-05] MEDS: DOCUSATE SODIUM SUGAR FREE 100MG/10ML UDC NG SCH (08:19)
[2017-06-05] MEDS: PANTOPRAZOLE SODIUM 40 MG/VIAL IV SCH (08:19)
[2017-06-05] MEDS: METOPROLOL TARTRATE 25MG TABLET PO SCH ×2 (08:20→21:00)
[2017-06-05] MEDS: AMLODIPINE 5MG TABLET NG SCH ×2 (08:21→21:00)
[2017-06-05] MEDS: INSULIN GLARGINE UD 100 UNITS/ML SYR SUBCUT SCH (11:34)
[2017-06-05] MEDS: HYDRALAZINE 20MG/ML VIAL IV PRN (18:23)
[2017-06-06] VITALS (20 sets, daily range): BP systolic 109–170; BP diastolic 74–124
[2017-06-06] MEDS: PHENYTOIN 100 MG/4 ML UDC NG SCH
[2017-06-06] MEDS: ACETYLCYSTEINE 100MG/ML 10% VIAL 4ML INH SCH ×3 (00:16→16:04)
[2017-06-06] MEDS: IPRATROPIUM/ALBUTEROL 0.5-3(2.5)MG/3ML NEB HHN SCH ×6 (00:17→20:10)
[2017-06-06] MEDS: HYDRALAZINE 20MG/ML VIAL IV PRN ×2 (03:59→10:44)
[2017-06-06] MEDS: INSULIN LISPRO 100 UNITS/ML SUBCUT SCH ×3 (06:00→18:23)
[2017-06-06] MEDS: HYDRALAZINE HCL 50MG TABLET NG SCH ×3 (06:00→18:22)
[2017-06-06] MEDS: CLONIDINE 0.2MG TABLET PO SCH ×3 (06:00→22:19)
[2017-06-06] MEDS: PHENYTOIN SODIUM 100MG/2ML VIAL IV SCH ×2 (06:04→14:31)
[2017-06-06] MEDS: BLOOD SUGAR DIAGNOSTIC STRIP TEST SCH ×3 (06:07→18:18)
[2017-06-06 06:29] LABS: PARTIAL THROMBOPLASTIN TIME 22.9 sec (23.4-31.0); PROTHROMBIN TIME 10.7 sec (9.4-11.6)
[2017-06-06 06:44] LABS: HEMATOCRIT 42.5 % (42.0-52.0); MEAN CORPUSCULAR HEMOGLOBIN 31.4 pg (28.0-32.0); MEAN CORPUSCULAR VOLUME 95.6 fL (80.0-94.0); PLATELET 179 x1000/uL (130-400); RED BLOOD CELL COUNT 4.44 mill/uL (4.7-6.1); RED CELL DISTRIBUTION WIDTH 13.2 % (11.6-14.6)
[2017-06-06] MEDS: AMLODIPINE 5MG TABLET NG SCH ×2 (08:49→20:36)
[2017-06-06] MEDS: DOCUSATE SODIUM SUGAR FREE 100MG/10ML UDC NG SCH (08:49)
[2017-06-06] MEDS: METOPROLOL TARTRATE 25MG TABLET PO SCH ×2 (08:50→20:37)
[2017-06-06] MEDS: PANTOPRAZOLE SODIUM 40 MG/VIAL IV SCH (08:56)
[2017-06-06] MEDS: DEXAMETHASONE 4MG/ML 1ML VIAL IV SCH ×2 (08:57→12:20)
[2017-06-06] MEDS: INSULIN GLARGINE UD 100 UNITS/ML SYR SUBCUT SCH (09:55)
[2017-06-06] MEDS: BUDESONIDE 0.5MG/2ML NEB HHN SCH ×2 (11:05→20:09)
[2017-06-06] MEDS: DEXTROSE 5% WATER 1,000 ML IV SCH ×2 (11:23→22:20)
[2017-06-06] MEDS ORDERED: CEFAZOLIN 1000MG PREMIX 50 ML IV SCH (13:00)
[2017-06-06] MEDS: ACETAMINOPHEN 650MG SUPP PR PRN (14:25)
[2017-06-06] MEDS ORDERED: PROPOFOL 200MG/20ML VIAL IV ONE (16:28)
[2017-06-06] MEDS ORDERED: LIDOCAINE HCL/PF 1% 10 MG/ML 5ML VIAL ONE (16:29)
[2017-06-06] MEDS: PHENYTOIN 100 MG/4 ML UDC GT SCH (22:20)
[2017-06-07] VITALS (12 sets, daily range): BP systolic 111–156; BP diastolic 74–104
[2017-06-07] MEDS: IPRATROPIUM/ALBUTEROL 0.5-3(2.5)MG/3ML NEB HHN SCH ×6 (00:29→20:25)
[2017-06-07] MEDS: ACETYLCYSTEINE 100MG/ML 10% VIAL 4ML INH SCH ×3 (00:29→16:51)
[2017-06-07] MEDS: BLOOD SUGAR DIAGNOSTIC STRIP TEST SCH ×4 (00:57→17:57)
[2017-06-07] MEDS: INSULIN LISPRO 100 UNITS/ML SUBCUT SCH ×4 (01:00→18:00)
[2017-06-07] MEDS: HYDRALAZINE HCL 50MG TABLET NG SCH ×4 (01:13→17:50)
[2017-06-07] MEDS: CLONIDINE 0.2MG TABLET PO SCH ×3 (05:40→21:44)
[2017-06-07] MEDS: PHENYTOIN 100 MG/4 ML UDC GT SCH ×3 (05:41→21:43)
[2017-06-07] MEDS: BUDESONIDE 0.5MG/2ML NEB HHN SCH (07:48)
[2017-06-07] MEDS: DEXTROSE 5% WATER 1,000 ML IV SCH ×2 (08:04→21:45)
[2017-06-07] MEDS: AMLODIPINE 5MG TABLET NG SCH ×2 (08:31→21:44)
[2017-06-07] MEDS: METOPROLOL TARTRATE 25MG TABLET PO SCH ×2 (08:31→21:44)
[2017-06-07] MEDS: PANTOPRAZOLE SODIUM 40 MG/VIAL IV SCH (08:42)
[2017-06-07] MEDS: DOCUSATE SODIUM SUGAR FREE 100MG/10ML UDC NG SCH (08:42)
[2017-06-07] MEDS: DEXAMETHASONE 4MG/ML 1ML VIAL IV SCH ×2 (08:42→17:42)
[2017-06-07] MEDS: INSULIN GLARGINE UD 100 UNITS/ML SYR SUBCUT SCH (10:17)
[2017-06-07] MEDS: VANCOMYCIN HCL 1000 MG/20 ML ORAL PO SCH ×2 (13:30→17:51)
[2017-06-07] MEDS: PIPERACILLIN/TAZ 3.375G PREMIX 50 ML IV SCH ×2 (15:01→21:43)
[2017-06-08] VITALS: BP 116/83
[2017-06-08] MEDS: IPRATROPIUM/ALBUTEROL 0.5-3(2.5)MG/3ML NEB HHN SCH ×6 (00:13→21:09)
[2017-06-08] MEDS: VANCOMYCIN HCL 1000 MG/20 ML ORAL PO SCH ×4 (01:03→17:58)
[2017-06-08] MEDS: HYDRALAZINE HCL 50MG TABLET NG SCH ×4 (01:03→17:58)
[2017-06-08] MEDS: INSULIN LISPRO 100 UNITS/ML SUBCUT SCH ×4 (01:04→17:59)
[2017-06-08] MEDS: ACETYLCYSTEINE 100MG/ML 10% VIAL 4ML INH SCH ×3 (03:46→21:10)
[2017-06-08 04:00] VITALS: BP 144/92
[2017-06-08] MEDS: PIPERACILLIN/TAZ 3.375G PREMIX 50 ML IV SCH ×3 (06:07→21:41)
[2017-06-08] MEDS: CLONIDINE 0.2MG TABLET PO SCH ×3 (06:07→21:41)
[2017-06-08] MEDS: BLOOD SUGAR DIAGNOSTIC STRIP TEST SCH ×4 (06:08→17:39)
[2017-06-08] MEDS: PHENYTOIN 100 MG/4 ML UDC GT SCH ×3 (06:10→21:40)
[2017-06-08] MEDS: DEXTROSE 5% WATER 1,000 ML IV SCH ×2 (06:11→13:50)
[2017-06-08 07:03] LABS: BASOPHILS % 0.4 % (0.0-2.0); EOSINOPHILS % 1.5 % (0.0-5.0); HEMATOCRIT. 37.6 % (42.0-52.0); HEMOGLOBIN. 12.5 g/dL (14.0-18.0); LYMPHOCYTES % 8.7 % (20.0-50.0); MEAN CORPUSCULAR HEMOGLOBIN 31.5 pg (28.0-32.0); MEAN PLATELET VOLUME 10.4 fl (7.4-10.4); MONOCYTES % 7.9 % (2.0-8.0); NEUTROPHILS % 81.5 % (40.0-76.0); PLATELET 132 x1000/uL (130-400); RED BLOOD CELL COUNT 3.95 mill/uL (4.7-6.1); RED CELL DISTRIBUTION WIDTH 12.7 % (11.6-14.6)
[2017-06-08 08:00] VITALS: BP 129/78
[2017-06-08] MEDS: DOCUSATE SODIUM SUGAR FREE 100MG/10ML UDC NG SCH (08:34)
[2017-06-08] MEDS: DEXAMETHASONE 4MG/ML 1ML VIAL IV SCH ×2 (08:35→17:57)
[2017-06-08] MEDS: PANTOPRAZOLE SODIUM 40 MG/VIAL IV SCH (08:35)
[2017-06-08] MEDS: METOPROLOL TARTRATE 25MG TABLET PO SCH ×2 (08:38→21:42)
[2017-06-08] MEDS: AMLODIPINE 5MG TABLET NG SCH ×2 (08:38→21:41)
[2017-06-08] MEDS: INSULIN GLARGINE UD 100 UNITS/ML SYR SUBCUT SCH (11:13)
[2017-06-08 11:58] LABS: BASOPHILS % 0.6 % (0.0-2.0); EOSINOPHILS % 2.2 % (0.0-5.0); HEMATOCRIT. 35.9 % (42.0-52.0); HEMOGLOBIN. 12.1 g/dL (14.0-18.0); LYMPHOCYTES % 9.9 % (20.0-50.0); MEAN CORPUSCULAR HEMOGLOBIN 31.8 pg (28.0-32.0); MEAN CORPUSCULAR VOLUME 94.1 fL (80.0-94.0); MEAN PLATELET VOLUME 9.7 fl (7.4-10.4); MONOCYTES % 10.2 % (2.0-8.0); NEUTROPHILS % 77.1 % (40.0-76.0); PLATELET 116 x1000/uL (130-400); RED BLOOD CELL COUNT 3.82 mill/uL (4.7-6.1); RED CELL DISTRIBUTION WIDTH 12.7 % (11.6-14.6)
[2017-06-08 12:00] VITALS: BP 121/78
[2017-06-08 12:34] LABS: CHLORIDE 110 mEq/L (98-107)
[2017-06-08] MEDS ORDERED: HYDRALAZINE 20MG/ML VIAL IV PRN (12:42)
[2017-06-08 16:00] VITALS: BP 123/72
[2017-06-08] MEDS: DIPHENHYDRAMINE 12.5MG/5ML UDC NG PRN (19:04)
[2017-06-08 20:00] VITALS: BP 134/86
[2017-06-09] VITALS: BP 120/75
[2017-06-09] MEDS: BLOOD SUGAR DIAGNOSTIC STRIP TEST SCH ×5 (00:51→23:41)
[2017-06-09] MEDS: VANCOMYCIN HCL 1000 MG/20 ML ORAL PO SCH ×5 (00:51→23:46)
[2017-06-09] MEDS: HYDRALAZINE HCL 50MG TABLET NG SCH ×4 (00:51→18:00)
[2017-06-09] MEDS: INSULIN LISPRO 100 UNITS/ML SUBCUT SCH ×5 (00:54→23:41)
[2017-06-09] MEDS: IPRATROPIUM/ALBUTEROL 0.5-3(2.5)MG/3ML NEB HHN SCH ×6 (00:57→20:57)
[2017-06-09] MEDS: DEXTROSE 5% WATER 1,000 ML IV SCH ×3 (01:04→23:33)
[2017-06-09 04:00] VITALS: BP 148/76
[2017-06-09] MEDS: PIPERACILLIN/TAZ 3.375G PREMIX 50 ML IV SCH ×4 (06:14→23:52)
[2017-06-09] MEDS: PHENYTOIN 100 MG/4 ML UDC GT SCH ×3 (06:15→21:02)
[2017-06-09] MEDS: CLONIDINE 0.2MG TABLET PO SCH ×3 (06:15→21:07)
[2017-06-09 06:29] LABS: BASOPHILS % 0.5 % (0.0-2.0); EOSINOPHILS % 2.5 % (0.0-5.0); HEMATOCRIT. 36.3 % (42.0-52.0); HEMOGLOBIN. 12.2 g/dL (14.0-18.0); MEAN CORPUSCULAR HEMOGLOBIN 31.5 pg (28.0-32.0); MEAN CORPUSCULAR VOLUME 93.7 fL (80.0-94.0); MEAN PLATELET VOLUME 10.2 fl (7.4-10.4); MONOCYTES % 7.8 % (2.0-8.0); NEUTROPHILS % 75.2 % (40.0-76.0); PLATELET 127 x1000/uL (130-400); RED BLOOD CELL COUNT 3.88 mill/uL (4.7-6.1); RED CELL DISTRIBUTION WIDTH 12.3 % (11.6-14.6)
[2017-06-09 07:27] LABS: CHLORIDE 109 mEq/L (98-107)
[2017-06-09 08:00] VITALS: BP 125/80
[2017-06-09] MEDS ORDERED: POTASSIUM CHLORIDE 20MEQ/PACKET NG NR (08:15)
[2017-06-09] MEDS: ACETYLCYSTEINE 100MG/ML 10% VIAL 4ML INH SCH ×2 (09:12→17:00)
[2017-06-09] MEDS: DOCUSATE SODIUM SUGAR FREE 100MG/10ML UDC NG SCH (09:48)
[2017-06-09] MEDS: PANTOPRAZOLE SODIUM 40 MG/VIAL IV SCH (09:48)
[2017-06-09] MEDS: DEXAMETHASONE 4MG/ML 1ML VIAL IV SCH (09:48)
[2017-06-09] MEDS: METOPROLOL TARTRATE 25MG TABLET PO SCH ×2 (09:49→20:40)
[2017-06-09] MEDS: AMLODIPINE 5MG TABLET NG SCH ×2 (09:49→20:41)
[2017-06-09] MEDS: INSULIN GLARGINE UD 100 UNITS/ML SYR SUBCUT SCH (09:51)
[2017-06-09 11:05] LABS: PHOSPHORUS 3.2 mg/dL (2.5-4.9)
[2017-06-09 12:00] VITALS: BP 131/89
[2017-06-09 16:00] VITALS: BP 118/68
[2017-06-09 20:00] VITALS: BP 134/86
[2017-06-09] MEDS: HALOPERIDOL LACTATE 5MG/ML VIAL IM PRN (23:34)
[2017-06-10] VITALS: BP 127/87
[2017-06-10] MEDS: HYDRALAZINE HCL 50MG TABLET NG SCH ×4 (00:31→18:00)
[2017-06-10] MEDS: IPRATROPIUM/ALBUTEROL 0.5-3(2.5)MG/3ML NEB HHN SCH ×6 (00:42→20:37)
[2017-06-10] MEDS: VANCOMYCIN HCL 1000 MG/20 ML ORAL PO SCH ×3 (05:16→18:24)
[2017-06-10] MEDS: PIPERACILLIN/TAZ 3.375G PREMIX 50 ML IV SCH ×3 (05:16→18:30)
[2017-06-10] MEDS: CLONIDINE 0.2MG TABLET PO SCH ×3 (05:24→22:35)
[2017-06-10] MEDS: INSULIN LISPRO 100 UNITS/ML SUBCUT SCH ×3 (05:49→17:49)
[2017-06-10] MEDS: BLOOD SUGAR DIAGNOSTIC STRIP TEST SCH ×3 (05:49→17:48)
[2017-06-10] MEDS: PHENYTOIN 100 MG/4 ML UDC GT SCH ×3 (05:52→21:54)
[2017-06-10 06:25] LABS: BASOPHILS % 0.4 % (0.0-2.0); EOSINOPHILS % 1.9 % (0.0-5.0); HEMATOCRIT. 34.8 % (42.0-52.0); HEMOGLOBIN. 11.9 g/dL (14.0-18.0); LYMPHOCYTES % 10.9 % (20.0-50.0); MEAN CORPUSCULAR HEMOGLOBIN 31.8 pg (28.0-32.0); MEAN CORPUSCULAR VOLUME 92.7 fL (80.0-94.0); MEAN PLATELET VOLUME 10.1 fl (7.4-10.4); MONOCYTES % 4.6 % (2.0-8.0); NEUTROPHILS % 82.2 % (40.0-76.0); PLATELET 141 x1000/uL (130-400); RED BLOOD CELL COUNT 3.75 mill/uL (4.7-6.1); RED CELL DISTRIBUTION WIDTH 12.4 % (11.6-14.6)
[2017-06-10 08:00] VITALS: BP 129/77
[2017-06-10 09:15] LABS: CHLORIDE 105 mEq/L (98-107)
[2017-06-10] MEDS: AMLODIPINE 5MG TABLET NG SCH ×2 (10:01→21:53)
[2017-06-10] MEDS: METOPROLOL TARTRATE 25MG TABLET PO SCH ×2 (10:01→21:53)
[2017-06-10] MEDS: DOCUSATE SODIUM SUGAR FREE 100MG/10ML UDC NG SCH (10:02)
[2017-06-10] MEDS: PANTOPRAZOLE SODIUM 40 MG/VIAL IV SCH (10:02)
[2017-06-10] MEDS: INSULIN GLARGINE UD 100 UNITS/ML SYR SUBCUT SCH (10:04)
[2017-06-10 12:00] VITALS: BP 127/82
[2017-06-10 16:00] VITALS: BP 108/84
[2017-06-10 20:35] VITALS: BP 137/90
[2017-06-10] MEDS: HALOPERIDOL LACTATE 5MG/ML VIAL IM PRN (22:38)
[2017-06-11] VITALS: BP 150/95
[2017-06-11] MEDS: PIPERACILLIN/TAZ 3.375G PREMIX 50 ML IV SCH ×4 (00:08→18:14)
[2017-06-11] MEDS: HYDRALAZINE HCL 50MG TABLET NG SCH ×4 (00:09→18:14)
[2017-06-11] MEDS: VANCOMYCIN HCL 1000 MG/20 ML ORAL PO SCH ×4 (00:09→18:14)
[2017-06-11] MEDS: BLOOD SUGAR DIAGNOSTIC STRIP TEST SCH ×4 (00:16→17:52)
[2017-06-11] MEDS: IPRATROPIUM/ALBUTEROL 0.5-3(2.5)MG/3ML NEB HHN SCH ×6 (00:24→21:33)
[2017-06-11 04:00] VITALS: BP 144/87
[2017-06-11 06:12] LABS: BASOPHILS % 0.2 % (0.0-2.0); EOSINOPHILS % 1.9 % (0.0-5.0); HEMATOCRIT. 34.9 % (42.0-52.0); LYMPHOCYTES % 8.5 % (20.0-50.0); MEAN CORPUSCULAR HEMOGLOBIN 31.6 pg (28.0-32.0); MEAN CORPUSCULAR VOLUME 92.2 fL (80.0-94.0); MEAN PLATELET VOLUME 9.4 fl (7.4-10.4); MONOCYTES % 4.2 % (2.0-8.0); NEUTROPHILS % 85.2 % (40.0-76.0); PLATELET 166 x1000/uL (130-400); RED BLOOD CELL COUNT 3.79 mill/uL (4.7-6.1); RED CELL DISTRIBUTION WIDTH 12.2 % (11.6-14.6)
[2017-06-11] MEDS: PHENYTOIN 100 MG/4 ML UDC GT SCH ×3 (06:53→21:23)
[2017-06-11] MEDS: CLONIDINE 0.2MG TABLET PO SCH ×3 (06:57→22:00)
[2017-06-11 07:00] LABS: CHLORIDE 107 mEq/L (98-107)
[2017-06-11] MEDS: INSULIN LISPRO 100 UNITS/ML SUBCUT SCH ×4 (07:05→17:52)
[2017-06-11 08:00] VITALS: BP 103/70
[2017-06-11] MEDS: METOPROLOL TARTRATE 25MG TABLET PO SCH ×2 (09:37→21:22)
[2017-06-11] MEDS: FAMOTIDINE 20MG TABLET PO SCH ×2 (09:37→18:14)
[2017-06-11] MEDS: AMLODIPINE 5MG TABLET NG SCH ×2 (09:37→21:22)
[2017-06-11] MEDS: DOCUSATE SODIUM SUGAR FREE 100MG/10ML UDC NG SCH (09:38)
[2017-06-11 12:00] VITALS: BP 136/85
[2017-06-11] MEDS: INSULIN GLARGINE UD 100 UNITS/ML SYR SUBCUT SCH (12:03)
[2017-06-11 16:00] VITALS: BP 135/93
[2017-06-11 20:00] VITALS: BP_SYST 145; BP_DIAS 85; BP_DIAS 86
[2017-06-12] VITALS: BP 141/87
[2017-06-12] MEDS: IPRATROPIUM/ALBUTEROL 0.5-3(2.5)MG/3ML NEB HHN SCH ×6 (00:09→21:07)
[2017-06-12] MEDS: HYDRALAZINE HCL 50MG TABLET NG SCH ×4 (02:13→17:58)
[2017-06-12] MEDS: VANCOMYCIN HCL 1000 MG/20 ML ORAL PO SCH ×4 (02:13→18:01)
[2017-06-12] MEDS: PIPERACILLIN/TAZ 3.375G PREMIX 50 ML IV SCH ×4 (02:33→17:59)
[2017-06-12] MEDS: INSULIN LISPRO 100 UNITS/ML SUBCUT SCH ×4 (06:00→18:00)
[2017-06-12] MEDS: BLOOD SUGAR DIAGNOSTIC STRIP TEST SCH ×4 (06:20→17:55)
[2017-06-12] MEDS: PHENYTOIN 100 MG/4 ML UDC GT SCH ×3 (06:26→21:48)
[2017-06-12] MEDS: CLONIDINE 0.2MG TABLET PO SCH ×3 (06:27→22:49)
[2017-06-12 08:00] VITALS: BP 133/79
[2017-06-12] MEDS: AMLODIPINE 5MG TABLET NG SCH ×2 (09:37→21:47)
[2017-06-12] MEDS: FAMOTIDINE 20MG TABLET PO SCH ×2 (09:37→17:58)
[2017-06-12] MEDS: METOPROLOL TARTRATE 25MG TABLET PO SCH ×2 (09:37→21:48)
[2017-06-12] MEDS: DOCUSATE SODIUM SUGAR FREE 100MG/10ML UDC NG SCH (09:38)
[2017-06-12] MEDS: INSULIN GLARGINE UD 100 UNITS/ML SYR SUBCUT SCH (10:47)
[2017-06-12 12:00] VITALS: BP 141/98
[2017-06-12 16:00] VITALS: BP 120/83
[2017-06-12 20:00] VITALS: BP 155/95
[2017-06-13] VITALS: BP 148/92
[2017-06-13] MEDS: PIPERACILLIN/TAZ 3.375G PREMIX 50 ML IV SCH ×3 (00:16→12:56)
[2017-06-13] MEDS: VANCOMYCIN HCL 1000 MG/20 ML ORAL PO SCH ×5 (00:17→23:41)
[2017-06-13] MEDS: BLOOD SUGAR DIAGNOSTIC STRIP TEST SCH ×5 (00:17→23:42)
[2017-06-13] MEDS: HYDRALAZINE HCL 50MG TABLET NG SCH ×5 (00:17→23:38)
[2017-06-13] MEDS: IPRATROPIUM/ALBUTEROL 0.5-3(2.5)MG/3ML NEB HHN SCH ×6 (00:31→20:48)
[2017-06-13] MEDS: INSULIN LISPRO 100 UNITS/ML SUBCUT SCH ×5 (06:00→23:59)
[2017-06-13] MEDS: CLONIDINE 0.2MG TABLET PO SCH ×3 (06:33→21:32)
[2017-06-13] MEDS: PHENYTOIN 100 MG/4 ML UDC GT SCH ×3 (06:33→21:31)
[2017-06-13 07:22] VITALS: BP 126/84
[2017-06-13] MEDS: FAMOTIDINE 20MG TABLET PO SCH ×2 (09:06→18:17)
[2017-06-13] MEDS: DOCUSATE SODIUM SUGAR FREE 100MG/10ML UDC NG SCH (09:06)
[2017-06-13] MEDS: AMLODIPINE 5MG TABLET NG SCH ×2 (09:08→21:32)
[2017-06-13] MEDS: METOPROLOL TARTRATE 25MG TABLET PO SCH ×2 (09:09→21:32)
[2017-06-13] MEDS: INSULIN GLARGINE UD 100 UNITS/ML SYR SUBCUT SCH (09:13)
[2017-06-13 11:22] VITALS: BP 136/67
[2017-06-13 16:00] VITALS: BP 117/78
[2017-06-13 20:00] VITALS: BP 163/102
[2017-06-14] VITALS: BP 153/90
[2017-06-14] MEDS: IPRATROPIUM/ALBUTEROL 0.5-3(2.5)MG/3ML NEB HHN SCH ×6 (01:06→20:32)
[2017-06-14 04:00] VITALS: BP 165/95
[2017-06-14] MEDS: CLONIDINE 0.2MG TABLET PO SCH ×3 (05:08→21:14)
[2017-06-14] MEDS: HYDRALAZINE HCL 50MG TABLET NG SCH ×3 (05:08→18:11)
[2017-06-14] MEDS: PHENYTOIN 100 MG/4 ML UDC GT SCH ×3 (05:08→21:14)
[2017-06-14] MEDS: VANCOMYCIN HCL 1000 MG/20 ML ORAL PO SCH ×2 (05:11→13:06)
[2017-06-14] MEDS: BLOOD SUGAR DIAGNOSTIC STRIP TEST SCH ×4 (05:11→23:03)
[2017-06-14] MEDS: INSULIN LISPRO 100 UNITS/ML SUBCUT SCH ×3 (05:12→17:28)
[2017-06-14 08:00] VITALS: BP 137/97
[2017-06-14] MEDS: DOCUSATE SODIUM SUGAR FREE 100MG/10ML UDC NG SCH (09:04)
[2017-06-14] MEDS: FAMOTIDINE 20MG TABLET PO SCH ×2 (09:04→18:11)
[2017-06-14] MEDS: AMLODIPINE 5MG TABLET NG SCH ×2 (09:04→21:13)
[2017-06-14] MEDS: METOPROLOL TARTRATE 25MG TABLET PO SCH ×2 (09:05→21:14)
[2017-06-14] MEDS: INSULIN GLARGINE UD 100 UNITS/ML SYR SUBCUT SCH (11:20)
[2017-06-14 12:00] VITALS: BP 148/91
[2017-06-14 16:00] VITALS: BP 139/90
[2017-06-14 20:00] VITALS: BP 132/88
[2017-06-14] MEDS: DIPHENHYDRAMINE 12.5MG/5ML UDC NG PRN (21:18)
[2017-06-15] VITALS: BP 153/96
[2017-06-15] MEDS: IPRATROPIUM/ALBUTEROL 0.5-3(2.5)MG/3ML NEB HHN SCH ×6 (00:13→21:57)
[2017-06-15] MEDS: HYDRALAZINE HCL 50MG TABLET NG SCH ×4 (00:34→18:03)
[2017-06-15 04:00] VITALS: BP 137/83
[2017-06-15] MEDS: PHENYTOIN 100 MG/4 ML UDC GT SCH ×3 (05:09→21:35)
[2017-06-15] MEDS: CLONIDINE 0.2MG TABLET PO SCH ×3 (05:10→21:36)
[2017-06-15] MEDS: INSULIN LISPRO 100 UNITS/ML SUBCUT SCH ×4 (05:17→17:59)
[2017-06-15] MEDS: BLOOD SUGAR DIAGNOSTIC STRIP TEST SCH ×3 (06:00→17:59)
[2017-06-15 08:10] VITALS: BP 147/93
[2017-06-15] MEDS: DOCUSATE SODIUM SUGAR FREE 100MG/10ML UDC NG SCH (09:13)
[2017-06-15] MEDS: INSULIN GLARGINE UD 100 UNITS/ML SYR SUBCUT SCH (09:13)
[2017-06-15] MEDS: FAMOTIDINE 20MG TABLET PO SCH ×2 (09:14→18:03)
[2017-06-15] MEDS: AMLODIPINE 5MG TABLET NG SCH ×2 (09:15→21:35)
[2017-06-15] MEDS: METOPROLOL TARTRATE 25MG TABLET PO SCH ×2 (09:16→21:35)
[2017-06-15 13:01] VITALS: BP 154/82
[2017-06-15 16:45] VITALS: BP 141/98
[2017-06-15 20:00] VITALS: BP 159/103
[2017-06-16] VITALS: BP 162/101
[2017-06-16] MEDS: HYDRALAZINE HCL 50MG TABLET NG SCH ×4 (01:14→18:15)
[2017-06-16] MEDS: IPRATROPIUM/ALBUTEROL 0.5-3(2.5)MG/3ML NEB HHN SCH ×5 (03:25→20:24)
[2017-06-16 04:00] VITALS: BP 139/89
[2017-06-16] MEDS: PHENYTOIN 100 MG/4 ML UDC GT SCH ×3 (05:19→21:29)
[2017-06-16] MEDS: BLOOD SUGAR DIAGNOSTIC STRIP TEST SCH ×4 (05:20→18:14)
[2017-06-16] MEDS: CLONIDINE 0.2MG TABLET PO SCH ×3 (05:20→21:29)
[2017-06-16] MEDS: INSULIN LISPRO 100 UNITS/ML SUBCUT SCH ×4 (06:00→18:37)
[2017-06-16 07:42] LABS: HEMATOCRIT. 35.4 % (42.0-52.0); HEMOGLOBIN. 12.1 g/dL (14.0-18.0); LYMPHOCYTES % 8.2 % (20.0-50.0); MEAN CORPUSCULAR HEMOGLOBIN 31.7 pg (28.0-32.0); MEAN CORPUSCULAR VOLUME 92.4 fL (80.0-94.0); MEAN PLATELET VOLUME 7.7 fl (7.4-10.4); MONOCYTES % 7.5 % (2.0-8.0); NEUTROPHILS % 80.3 % (40.0-76.0); PLATELET 344 x1000/uL (130-400); RED BLOOD CELL COUNT 3.83 mill/uL (4.7-6.1)
[2017-06-16 07:50] VITALS: BP 144/99
[2017-06-16 08:00] LABS: CHLORIDE 107 mEq/L (98-107)
[2017-06-16] MEDS: FAMOTIDINE 20MG TABLET PO SCH ×2 (09:31→18:14)
[2017-06-16] MEDS: DOCUSATE SODIUM SUGAR FREE 100MG/10ML UDC NG SCH (09:31)
[2017-06-16] MEDS: AMLODIPINE 5MG TABLET NG SCH ×2 (09:32→21:29)
[2017-06-16] MEDS: METOPROLOL TARTRATE 25MG TABLET PO SCH ×2 (09:33→21:30)
[2017-06-16] MEDS: INSULIN GLARGINE UD 100 UNITS/ML SYR SUBCUT SCH (09:47)
[2017-06-16 12:48] VITALS: BP 153/91
[2017-06-16 16:00] VITALS: BP 135/83
[2017-06-16 20:00] VITALS: BP 152/95
[2017-06-17] VITALS: BP 138/87
[2017-06-17] MEDS: HYDRALAZINE HCL 50MG TABLET NG SCH ×4 (00:19→18:11)
[2017-06-17] MEDS: BLOOD SUGAR DIAGNOSTIC STRIP TEST SCH ×4 (00:19→18:11)
[2017-06-17] MEDS: IPRATROPIUM/ALBUTEROL 0.5-3(2.5)MG/3ML NEB HHN SCH ×3 (00:22→20:31)
[2017-06-17] MEDS: INSULIN LISPRO 100 UNITS/ML SUBCUT SCH ×4 (00:27→18:00)
[2017-06-17 04:00] VITALS: BP 154/94
[2017-06-17] MEDS: PHENYTOIN 100 MG/4 ML UDC GT SCH ×3 (05:20→20:57)
[2017-06-17] MEDS: CLONIDINE 0.2MG TABLET PO SCH ×3 (05:20→20:58)
[2017-06-17 08:00] VITALS: BP 125/82
[2017-06-17] MEDS: FAMOTIDINE 20MG TABLET PO SCH ×2 (09:05→18:10)
[2017-06-17] MEDS: DOCUSATE SODIUM SUGAR FREE 100MG/10ML UDC NG SCH (09:05)
[2017-06-17] MEDS: METOPROLOL TARTRATE 25MG TABLET PO SCH ×2 (09:06→20:57)
[2017-06-17] MEDS: AMLODIPINE 5MG TABLET NG SCH ×2 (09:06→20:57)
[2017-06-17] MEDS: INSULIN GLARGINE UD 100 UNITS/ML SYR SUBCUT SCH (09:08)
[2017-06-17 12:00] VITALS: BP 127/75
[2017-06-17 16:00] VITALS: BP 152/97
[2017-06-17 20:00] VITALS: BP 163/94
[2017-06-18] VITALS: BP 149/82
[2017-06-18] MEDS: BLOOD SUGAR DIAGNOSTIC STRIP TEST SCH ×4 (00:13→16:12)
[2017-06-18] MEDS: HYDRALAZINE HCL 50MG TABLET NG SCH ×4 (00:15→17:07)
[2017-06-18] MEDS: IPRATROPIUM/ALBUTEROL 0.5-3(2.5)MG/3ML NEB HHN SCH ×6 (00:30→23:47)
[2017-06-18 04:00] VITALS: BP 152/86
[2017-06-18] MEDS: INSULIN LISPRO 100 UNITS/ML SUBCUT SCH ×4 (05:03→16:12)
[2017-06-18] MEDS: CLONIDINE 0.2MG TABLET PO SCH ×3 (05:03→21:59)
[2017-06-18] MEDS: PHENYTOIN 100 MG/4 ML UDC GT SCH ×3 (05:03→22:01)
[2017-06-18 08:00] VITALS: BP 154/100
[2017-06-18] MEDS: DOCUSATE SODIUM SUGAR FREE 100MG/10ML UDC NG SCH (08:43)
[2017-06-18] MEDS: FAMOTIDINE 20MG TABLET PO SCH ×2 (08:44→17:06)
[2017-06-18] MEDS: AMLODIPINE 5MG TABLET NG SCH ×2 (08:44→21:59)
[2017-06-18] MEDS: METOPROLOL TARTRATE 25MG TABLET PO SCH ×2 (08:44→21:59)
[2017-06-18] MEDS: INSULIN GLARGINE UD 100 UNITS/ML SYR SUBCUT SCH (11:30)
[2017-06-18 12:00] VITALS: BP 142/87
[2017-06-18 16:00] VITALS: BP 138/99
[2017-06-18 20:00] VITALS: BP 151/96
[2017-06-19] VITALS: BP 154/91
[2017-06-19] MEDS: INSULIN LISPRO 100 UNITS/ML SUBCUT SCH ×5 (01:10→23:45)
[2017-06-19] MEDS: BLOOD SUGAR DIAGNOSTIC STRIP TEST SCH ×5 (01:10→23:45)
[2017-06-19] MEDS: HYDRALAZINE HCL 50MG TABLET NG SCH ×5 (01:14→23:43)
[2017-06-19] MEDS: IPRATROPIUM/ALBUTEROL 0.5-3(2.5)MG/3ML NEB HHN SCH ×5 (03:31→20:43)
[2017-06-19 04:00] VITALS: BP 134/92
[2017-06-19] MEDS: PHENYTOIN 100 MG/4 ML UDC GT SCH ×3 (05:23→21:15)
[2017-06-19] MEDS: CLONIDINE 0.2MG TABLET PO SCH ×3 (05:23→21:16)
[2017-06-19 08:00] VITALS: BP 144/91
[2017-06-19] MEDS: FAMOTIDINE 20MG TABLET PO SCH ×2 (08:19→17:35)
[2017-06-19] MEDS: AMLODIPINE 5MG TABLET NG SCH ×2 (08:22→21:17)
[2017-06-19] MEDS: DOCUSATE SODIUM SUGAR FREE 100MG/10ML UDC NG SCH (08:22)
[2017-06-19] MEDS: METOPROLOL TARTRATE 25MG TABLET PO SCH ×2 (08:22→21:17)
[2017-06-19] MEDS: INSULIN GLARGINE UD 100 UNITS/ML SYR SUBCUT SCH (09:47)
[2017-06-19 12:00] VITALS: BP 141/82
[2017-06-19 16:00] VITALS: BP 143/91
[2017-06-19 20:00] VITALS: BP 137/94
[2017-06-19] MEDS: HALOPERIDOL LACTATE 5MG/ML VIAL IM PRN (23:43)
[2017-06-20] VITALS: BP 144/86
[2017-06-20] MEDS: IPRATROPIUM/ALBUTEROL 0.5-3(2.5)MG/3ML NEB HHN SCH ×6 (00:42→20:31)
[2017-06-20] MEDS: DIPHENHYDRAMINE 12.5MG/5ML UDC NG PRN (02:27)
[2017-06-20 04:00] VITALS: BP 130/80
[2017-06-20] MEDS: PHENYTOIN 100 MG/4 ML UDC GT SCH ×3 (05:12→22:20)
[2017-06-20] MEDS: BLOOD SUGAR DIAGNOSTIC STRIP TEST SCH ×3 (05:12→17:31)
[2017-06-20] MEDS: CLONIDINE 0.2MG TABLET PO SCH ×3 (05:12→22:21)
[2017-06-20] MEDS: HYDRALAZINE HCL 50MG TABLET NG SCH ×3 (05:12→17:31)
[2017-06-20] MEDS: INSULIN LISPRO 100 UNITS/ML SUBCUT SCH ×3 (05:23→17:31)
[2017-06-20 08:00] VITALS: BP 139/93
[2017-06-20] MEDS: DOCUSATE SODIUM SUGAR FREE 100MG/10ML UDC NG SCH (08:23)
[2017-06-20] MEDS: METOPROLOL TARTRATE 25MG TABLET PO SCH ×2 (08:23→22:22)
[2017-06-20] MEDS: FAMOTIDINE 20MG TABLET PO SCH ×2 (08:24→17:31)
[2017-06-20] MEDS: AMLODIPINE 5MG TABLET NG SCH ×2 (08:24→22:21)
[2017-06-20] MEDS: INSULIN GLARGINE UD 100 UNITS/ML SYR SUBCUT SCH (09:06)
[2017-06-20 12:00] VITALS: BP 149/103
[2017-06-20 16:00] VITALS: BP 146/97
[2017-06-20 20:00] VITALS: BP 158/100
[2017-06-21] VITALS: BP 139/90
[2017-06-21] MEDS: IPRATROPIUM/ALBUTEROL 0.5-3(2.5)MG/3ML NEB HHN SCH ×4 (00:07→11:55)
[2017-06-21] MEDS: BLOOD SUGAR DIAGNOSTIC STRIP TEST SCH ×3 (00:49→12:37)
[2017-06-21] MEDS: HYDRALAZINE HCL 50MG TABLET NG SCH ×4 (00:52→17:32)
[2017-06-21 04:00] VITALS: BP 170/98
[2017-06-21] MEDS: CLONIDINE 0.2MG TABLET PO SCH ×3 (05:41→21:19)
[2017-06-21] MEDS: INSULIN LISPRO 100 UNITS/ML SUBCUT SCH ×4 (05:43→17:44)
[2017-06-21] MEDS: PHENYTOIN 100 MG/4 ML UDC GT SCH ×3 (05:43→21:18)
[2017-06-21 07:27] LABS: BASOPHILS % 0.3 % (0.0-2.0); EOSINOPHILS % 2.1 % (0.0-5.0); HEMATOCRIT. 34.6 % (42.0-52.0); MEAN CORPUSCULAR HEMOGLOBIN 32.3 pg (28.0-32.0); MEAN CORPUSCULAR VOLUME 93.3 fL (80.0-94.0); MEAN PLATELET VOLUME 7.5 fl (7.4-10.4); MONOCYTES % 7.9 % (2.0-8.0); NEUTROPHILS % 81.7 % (40.0-76.0); PLATELET 324 x1000/uL (130-400); RED CELL DISTRIBUTION WIDTH 13.8 % (11.6-14.6)
[2017-06-21 07:51] LABS: CHLORIDE 104 mEq/L (98-107)
[2017-06-21 08:00] VITALS: BP 141/93
[2017-06-21] MEDS: DOCUSATE SODIUM SUGAR FREE 100MG/10ML UDC NG SCH (09:19)
[2017-06-21] MEDS: AMLODIPINE 5MG TABLET NG SCH ×2 (09:20→21:19)
[2017-06-21] MEDS: METOPROLOL TARTRATE 50MG TABLET PO SCH ×2 (09:21→21:20)
[2017-06-21] MEDS: INSULIN GLARGINE UD 100 UNITS/ML SYR SUBCUT SCH (09:23)
[2017-06-21 12:00] VITALS: BP 154/97
[2017-06-21 16:00] VITALS: BP 119/92
[2017-06-21 20:00] VITALS: BP 144/92
[2017-06-22] VITALS: BP 142/88
[2017-06-22] MEDS: HYDRALAZINE HCL 50MG TABLET NG SCH ×4 (00:18→18:39)
[2017-06-22 04:00] VITALS: BP 141/93
[2017-06-22] MEDS: INSULIN LISPRO 100 UNITS/ML SUBCUT SCH ×4 (05:27→18:00)
[2017-06-22] MEDS: PHENYTOIN 100 MG/4 ML UDC GT SCH ×3 (05:27→21:17)
[2017-06-22] MEDS: CLONIDINE 0.2MG TABLET PO SCH ×3 (05:28→21:18)
[2017-06-22 08:00] VITALS: BP 124/84
[2017-06-22] MEDS: DOCUSATE SODIUM SUGAR FREE 100MG/10ML UDC NG SCH (08:54)
[2017-06-22] MEDS: METOPROLOL TARTRATE 50MG TABLET PO SCH ×2 (08:55→21:17)
[2017-06-22] MEDS: AMLODIPINE 5MG TABLET NG SCH ×2 (08:55→21:17)
[2017-06-22 12:00] VITALS: BP 128/87
[2017-06-22] MEDS ORDERED: INSULIN GLARGINE UD 100 UNITS/ML SYR SUBCUT SCH (13:30)
[2017-06-22 16:00] VITALS: BP 118/72
[2017-06-22 20:00] VITALS: BP 136/90
[2017-06-23] VITALS (7 sets, daily range): BP systolic 100–149; BP diastolic 73–100
[2017-06-23] MEDS: HYDRALAZINE HCL 50MG TABLET NG SCH ×4 (00:12→18:00)
[2017-06-23] MEDS: INSULIN LISPRO 100 UNITS/ML SUBCUT SCH ×2 (06:00)
[2017-06-23] MEDS: CLONIDINE 0.2MG TABLET PO SCH ×3 (06:02→21:40)
[2017-06-23] MEDS: PHENYTOIN 100 MG/4 ML UDC GT SCH ×3 (06:02→21:40)
[2017-06-23] MEDS: AMLODIPINE 5MG TABLET NG SCH (09:56)
[2017-06-23] MEDS: METOPROLOL TARTRATE 50MG TABLET PO SCH ×2 (09:56→21:40)
[2017-06-23] MEDS: DOCUSATE SODIUM SUGAR FREE 100MG/10ML UDC NG SCH (09:57)
[2017-06-24] VITALS (7 sets, daily range): BP systolic 95–182; BP diastolic 52–107
[2017-06-24] MEDS: HYDRALAZINE HCL 50MG TABLET NG SCH ×4 (00:34→18:00)
[2017-06-24] MEDS: PHENYTOIN 100 MG/4 ML UDC GT SCH ×3 (06:10→22:09)
[2017-06-24] MEDS: CLONIDINE 0.2MG TABLET PO SCH ×3 (06:11→22:00)
[2017-06-24] MEDS: DOCUSATE SODIUM SUGAR FREE 100MG/10ML UDC NG SCH (09:21)
[2017-06-24] MEDS: METOPROLOL TARTRATE 50MG TABLET PO SCH ×2 (09:21→21:00)
[2017-06-24] MEDS: ACETAMINOPHEN 650MG SUPP PR PRN (16:33)
[2017-06-25] VITALS (102 sets, daily range): BP systolic 37–166; BP diastolic 22–108
[2017-06-25] MEDS ORDERED: METOCLOPRAMIDE HCL 10MG/2ML VIAL IV PRN
[2017-06-25] MEDS ORDERED: METOCLOPRAMIDE HCL 10MG/2ML VIAL IV SCH
[2017-06-25] MEDS: SODIUM CHLORIDE 0.9% 1,000 ML IV SCH ×2 (00:09→09:47)
[2017-06-25 03:55] LABS: BG BASE EXCESS 0.4 mmol/L (-2.0-2.0); BG CARBOXYHEMOGLOBIN 0.4 % (0.5-1.5); BG DEOXYHEMOGLOBIN 5.9 % (0.0-5.0); BG FRACTION INSPIRED OXYGEN 21; BG METHEMOGLOBIN 0.2 % (0.0-1.5); BG OXYGEN SATURATION 94.1 % (92.0-98.5); BG OXYHEMOGLOBIN 93.5 % (94.0-97.0); BG PH 7.576 (7.350-7.450); BG PO2 62.2 mmHg (75.0-100.0); BG SAMPLE SITE RIGHT BRACHIAL; BG TOTAL HEMOGLOBIN 15.7 g/dL (12.0-18.0); BG VENT MODE ROOM AIR
[2017-06-25 04:48] LABS: BG BASE EXCESS -12.2 mmol/L (-2.0-2.0); BG CARBOXYHEMOGLOBIN 0.3 % (0.5-1.5); BG DEOXYHEMOGLOBIN 2.1 % (0.0-5.0); BG FRACTION INSPIRED OXYGEN 60; BG HCO3 ACT 15.9 mmol/L (22.0-26.0); BG METHEMOGLOBIN 0.4 % (0.0-1.5); BG OXYGEN SATURATION 97.9 % (92.0-98.5); BG OXYHEMOGLOBIN 97.2 % (94.0-97.0); BG PCO2 44.5 mmHg (35.0-45.0); BG PH 7.171 (7.350-7.450); BG SAMPLE SITE RIGHT RADIAL; BG TIDAL VOLUME(mL) 500 mL; BG TOTAL HEMOGLOBIN 12.3 g/dL (12.0-18.0); BG VENT MODE VENT - A/C; BG VENT RATE 12 set
[2017-06-25] MEDS ORDERED: DOPAMINE 800MG PREMIX 250 ML IV ONE (04:50)
[2017-06-25] MEDS ORDERED: DOPAMINE 800MG PREMIX 250 ML IV PRN (05:00)
[2017-06-25] MEDS ORDERED: DEXTROSE 50% WATER 50ML SYRINGE IV ONE (05:00)
[2017-06-25] MEDS ORDERED: SODIUM BICARBONATE 7.5% 0.9 MEQ/ML 50ML SYR IV ONE ×2 (05:00→14:39)
[2017-06-25] MEDS ORDERED: EPINEPHRINE 0.1MG/ML (1:10,000) 10ML SYR ONE ×2 (05:00→14:39)
[2017-06-25] MEDS ORDERED: PHENYLEPHRINE 40 MG in DEXT 5% WATER 246 ML IV PRN (05:15)
[2017-06-25] MEDS ORDERED: NOREPINEPHRINE 16 MG in DEXT 5% WATER 234 ML IV PRN (05:15)
[2017-06-25 05:22] LABS: HEMOGLOBIN. 9.8 g/dL (14.0-18.0); MEAN CORPUSCULAR HEMOGLOBIN 32.3 pg (28.0-32.0); MEAN CORPUSCULAR VOLUME 95.4 fL (80.0-94.0); PLATELET 136 x1000/uL (130-400); RED BLOOD CELL COUNT 3.04 mill/uL (4.7-6.1); RED CELL DISTRIBUTION WIDTH 14.1 % (11.6-14.6)
[2017-06-25] MEDS: HYDRALAZINE HCL 50MG TABLET NG SCH ×2 (06:00)
[2017-06-25] MEDS: CLONIDINE 0.2MG TABLET PO SCH (06:00)
[2017-06-25] MEDS: PHENYTOIN 100 MG/4 ML UDC GT SCH (06:02)
[2017-06-25] MEDS: RACEPINEPHRINE 2.25% 0.5ML NEB VIAL HHN PRN (06:25)
[2017-06-25 08:22] LABS: BG BASE EXCESS -8.9 mmol/L (-2.0-2.0); BG CARBOXYHEMOGLOBIN 0.3 % (0.5-1.5); BG DEOXYHEMOGLOBIN 7.7 % (0.0-5.0); BG FRACTION INSPIRED OXYGEN 60; BG HCO3 ACT 18.5 mmol/L (22.0-26.0); BG METHEMOGLOBIN 0.5 % (0.0-1.5); BG OXYGEN SATURATION 92.2 % (92.0-98.5); BG OXYHEMOGLOBIN 91.5 % (94.0-97.0); BG PCO2 45.3 mmHg (35.0-45.0); BG PH 7.228 (7.350-7.450); BG PO2 78.5 mmHg (75.0-100.0); BG SAMPLE SITE RIGHT RADIAL; BG TIDAL VOLUME(mL) 500 mL; BG TOTAL HEMOGLOBIN 13.5 g/dL (12.0-18.0); BG VENT MODE VENT - A/C; BG VENT RATE 12 set
[2017-06-25] MEDS ORDERED: LIDOCAINE HCL/PF 1% 10 MG/ML 30ML VIAL ONE (08:48)
[2017-06-25] MEDS: METOPROLOL TARTRATE 50MG TABLET PO SCH (09:00)
[2017-06-25] MEDS: DOCUSATE SODIUM SUGAR FREE 100MG/10ML UDC NG SCH (09:10)
[2017-06-25] MEDS ORDERED: PANTOPRAZOLE SODIUM 40 MG/VIAL IV SCH (09:30)
[2017-06-25] MEDS ORDERED: VANCOMYCIN 1250MG in DEXTROSE 5% WATER 250ML IV SCH (11:00)
[2017-06-25] MEDS: PIPERACILLIN/TAZ 3.375G PREMIX 50 ML IV SCH ×2 (11:11→19:45)
[2017-06-25] MEDS: DOPAMINE 800MG PREMIX 250 ML IV PRN ×3 (11:11→19:41)
[2017-06-25] MEDS ORDERED: SODIUM BICARBONATE 8.4% 1 MEQ/ML 50ML SYR IV SCH (11:15)
[2017-06-25 11:38] LABS: NUCLEATED RED BLOOD CELLS 1 /100 WBC; PLATELET ESTIMATE NORMAL
[2017-06-25] MEDS: NOREPINEPHRINE 16 MG in DEXT 5% WATER 234 ML IV PRN ×3 (13:58→19:40)
[2017-06-25] MEDS ORDERED: PHENYTOIN SODIUM 100MG/2ML VIAL IV SCH (14:00)
[2017-06-25] MEDS: PHENYLEPHRINE 40 MG in DEXT 5% WATER 246 ML IV PRN ×2 (16:03→19:40)
[2017-06-25] MEDS ORDERED: SODIUM BICARBONATE 150 MEQ in DEXTROSE 5% WATER 1,000 ML IV SCH (17:00)
[2017-06-26] MEDS ORDERED: PANTOPRAZOLE SODIUM 40 MG/VIAL IV SCH (09:00)
== END 2017-06-25 21:15 | disposition expired | DRG 720 ==
LOC: ER 22:55 → EDBEDREQ 05-24 00:19 → EDBEDREQSVC 05-24 00:19 → EDBEDREQTM 05-24 00:19 → EDBD 05-24 00:22 → MICUNO 05-24 00:22 → EDBEDREQDT 05-24 00:38 → EDBEDREQ 05-24 00:38 → EDBEDREQTM 05-24 00:38 → ENRESERV 05-24 01:58 → MICUSO 06-03 06:45 → 3WST 06-04 17:25 → 5WST 06-07 12:20 → 6EST 06-23 21:02 → MICUSO 06-25 03:50
PROVIDERS: ADMIT Internal Medicine Nephrology; ATTEND Internal Medicine Nephrology
PROC: 5A1955Z Respiratory Ventilation, Greater than 96 Consecutive Hours (ICD-10-PCS; principal; 2017-05-24)
PROC: 0BH17EZ Insertion of Endotracheal Airway into Trachea, Via Natural or Artificial Opening (ICD-10-PCS; 2017-05-24)
PROC: 0DH63UZ Insertion of Feeding Device into Stomach, Percutaneous Approach (ICD-10-PCS; 2017-06-06)
PROC: 5A1935Z Respiratory Ventilation, Less than 24 Consecutive Hours (ICD-10-PCS; 2017-06-25)
PROC: 02H633Z Insertion of Infusion Device into Right Atrium, Percutaneous Approach (ICD-10-PCS; 2017-06-25)
PROC: B244ZZZ Ultrasonography of Right Heart (ICD-10-PCS; 2017-06-25)
PROC: 5A12012 Performance of Cardiac Output, Single, Manual (ICD-10-PCS; 2017-06-25)
DX: A41.01 Sepsis due to Methicillin susceptible Staphylococcus aureus (principal); J96.00 Acute respiratory failure, unspecified whether with hypoxia or hypercapnia; N17.0 Acute kidney failure with tubular necrosis; J69.0 Pneumonitis due to inhalation of food and vomit; G93.41 Metabolic encephalopathy; I60.9 Nontraumatic subarachnoid hemorrhage, unspecified; I61.0 Nontraumatic intracerebral hemorrhage in hemisphere, subcortical; K29.61 Other gastritis with bleeding; I50.43 Acute on chronic combined systolic (congestive) and diastolic (congestive) heart failure; I46.9 Cardiac arrest, cause unspecified; E43 Unspecified severe protein-calorie malnutrition; G91.9 Hydrocephalus, unspecified; E87.0 Hyperosmolality and hypernatremia; J15.0 Pneumonia due to Klebsiella pneumoniae; E11.22 Type 2 diabetes mellitus with diabetic chronic kidney disease; I13.0 Hypertensive heart and chronic kidney disease with heart failure and stage 1 through stage 4 chronic kidney disease, or unspecified chronic kidney disease; E86.1 Hypovolemia; D64.9 Anemia, unspecified; E11.65 Type 2 diabetes mellitus with hyperglycemia; E87.6 Hypokalemia; T50.2X5A Adverse effect of carbonic-anhydrase inhibitors, benzothiadiazides and other diuretics, initial encounter; G40.89 Other seizures; G81.94 Hemiplegia, unspecified affecting left nondominant side; I80.9 Phlebitis and thrombophlebitis of unspecified site; J44.0 Chronic obstructive pulmonary disease with (acute) lower respiratory infection; J44.1 Chronic obstructive pulmonary disease with (acute) exacerbation; J98.11 Atelectasis; K59.00 Constipation, unspecified; N18.9 Chronic kidney disease, unspecified; R13.12 Dysphagia, oropharyngeal phase; T38.0X5A Adverse effect of glucocorticoids and synthetic analogues, initial encounter; Y92.89 Other specified places as the place of occurrence of the external cause; Z74.01 Bed confinement status; Z68.21 Body mass index [BMI] 21.0-21.9, adult
CPT/HCPCS: 31500; 36415; 36569; 36600; 51702; 70450; 70544; 70553; 71045; 76937; 78615; 80048; 80053; 80185; 80305; 81003; 82140; 82375; 82805; 82962; 83605; 83721; 83735; 84100; 84145; 84478; 84484; 85025; 85027; 85610; 85730; 87040; 87070; 87077; 87186; 93005; 93306; 94002; 94003; 94640; 94667; 96361; 96365; 96367; 96375; 97112; 97163; 97164; 97167; 99291; A4216; A6261; A9512; C1725; C9113; G0482; J0330; J0360; J0690; J1100; J1165; J1265; J1630; J1815; J1953; J2060; J2250; J2270; J2370; J2543; J2704; J2765; J3370; J3480; J3490; J7030; J7040; J7050; J7060; J7070; J7608; J7620; J7626; Q0163; A4315